=== PATIENT | female | born 1960 | race Caucasian/White ===

== ENCOUNTER 2018-10-16 21:57 | Emergency (ER) | payer OTHER, SELFPAY ==
[2018-10-16 21:58] VITALS: BP 141/84; PULSE 102; RESP 16; TEMP 36.8; O2SAT 97; BMI 48.1
--- NOTE | 2018-10-16 22:22 | ED.DCSUM_ITS ---
- ER Visit Summary Date of Service: 10/16/18 Chief Complaint: Sore throat and tongue History of Present Illness: The patient is a 58 F no significant past medical history. Currently on no medications. Patient states she has been fighting a URI for the last week or so. Said that is improving. Nonproductive cough. No fever. States last 2 days she has had a sore throat and sore tongue. Is able to swallow. Physical Examination: Well-appearing female. Vital signs are stable. She is afebrile. She does not look septic or toxic. She is in no acute distress. HEENT exam unremarkable. Posterior pharynx without erythema or exudate. Tonsils not enlarged. No troubles swallowing or breathing. No drooling. Tongue unremarkable. No swelling. No abscess ulcers. No yeast infection. TMs are normal. Neck nontender. No lymphadenopathy. Lungs clear to auscultation bilaterally. Heart regular rhythm no murmur. Dry cough on the lung exam. Abdomen soft nontender. Moving all 4 extremities. Back nontender. Neurologically she is awake and alert without focal motor deficits. Test Results: None Emergency Department Course and Treatment: Patient's history and exam are consistent with a viral URI. No tests are warranted. Treatment Plan: Warm salt water gargling and/or gargling with Gly-Oxide. Follow-up with her primary care physician as needed. Disposition: Discharge Impression: Acute viral URI This note was generated with [employer] dictation software. It may contain incorrect words, spelling, and punctuation that were not noted in review of the chart prior to signing ED Disposition - Plan for ED Patient: Chief Complaint: Sore Throat Referrals: NOT,DEFINED [Primary Care Provider] -
--- NOTE | 2018-10-16 22:22 | ED.DEP ---
ED Disposition - Plan for ED Patient: Disposition: Home or Assisted Living Chief Complaint: Sore Throat Instructions: ED Pharyngitis Viral Referrals: Yoandy Franco MD [NON-STAFF] - As Needed Additional Instructions: Warm salt water gargling. Gly-Oxide to help with discomfort of your mouth. 3-5 drops swish around your mouth for 2-5 minutes. 3-5 times per day.
== END 2018-10-16 22:53 | disposition home or self-care (01) ==
PROVIDERS: Emergency Provider Emergency Medicine
DX: J06.9 Acute upper respiratory infection, unspecified (principal)
CPT/HCPCS: 99282

== ENCOUNTER → 2021-05-12 15:24 | Outpatient (CLI) | payer OTHER, SELFPAY ==
[2021-05-12 16:03] LABS: Absolute Lymphocyte Count 1.47 X10^3/uL (0.83-4.51); Absolute Neutrophil Count 4.5 X10^3/uL (2.0-7.7); Basophil# 0.04 X10^3/uL; Basophil% 0.6 % (0-1); Eosinophil# 0.11 X10^3/uL; Eosinophils% 1.6 % (0-5); Hematocrit 43.6 % (37-47); Hemoglobin 14.5 g/dL (12.0-15.0); Lymphocyte # 1.47 X10^3/ul (0.83-4.51); Lymphocyte % 21.3 % (19-41); Mean Corp Hgb Conc 33.3 g/dL (32-36); Mean Corpuscular Hgb 30.7 pg (27.0-32.0); Mean Corpuscular Volume 92.2 fL (81-99); Mean Platelet Vol. 11.2 fl (6.2-12.0); Monocyte# 0.78 X10^3/uL; Monocyte% 11.3 % (0-10); NRBC Flagged by Analyzer 0 % (0-5); Neutrophil # 4.49 X10^3/uL (2.7-7.7); Neutrophil % 65.1 % (47-70); Platelet Count 285 K/mm3 (150-450); RBC Distribution Width CV 12.7 % (11.6-14.6); RBC Distribution Width SD 43.5 fl (35.1-43.9); Red Blood Count 4.73 M/mm3 (4.2-5.4); White Blood Count 6.9 K/mm3 (4.4-11.0)
[2021-05-12 16:30] LABS: AST(SGOT) 23 U/L (15-37); Alanine Aminotransfer ALT/SGPT 38 U/L (13-56); Albumin, Serum 3.8 g/dL (3.2-5.0); Alkaline Phosphatase 89 U/L (45-117); Anion Gap 9 (5-15); BUN 21 mg/dL (7-18); BUN/Creat Ratio 20.8 RATIO (10-20); Calcium,Total 8.9 mg/dL (8.5-10.1); Chloride 104 mmol/L (98-107); Creatinine, Serum 1.01 mg/dL (0.55-1.02); EST Glomerular Filtration Rate 59 mL/min (>60); Est Glom Filt Rate - Afr Amer 71 mL/min (>60); Globulin 3.8 g/dL (2.2-4.2); Glucose 120 mg/dL (74-106); Potassium 4.4 mmol/L (3.5-5.1); Protein, Total 7.6 g/dL (6.4-8.2); Sodium Level 140 mmol/L (136-145); Thyroid Stim Hormone (TSH) 2.52 uIU/mL (0.358-3.74)
[2021-05-13 11:09] LABS: Hepatitis C Antibody Non-Reactive (Nonreactive)
== END ==
PROVIDERS: PCP Family Medicine Geriatric Medicine; Visit Provider Family Medicine Geriatric Medicine
DX: I10 Essential (primary) hypertension (principal)
CPT/HCPCS: 36415; 80053; 84443; 85025; 86803

== ENCOUNTER → 2021-06-08 07:35 | Outpatient (CLI) | payer OTHER, SELFPAY ==
--- NOTE | 2021-06-08 07:38 | BI_ITS ---
MAMMOGRAPHY - BILATERAL SCREENING REASON FOR EXAM: Female, 61 years old. Routine annual screening examination. PERTINENT HISTORY: Non-contributory. TECHNIQUE: Digital bilateral breast wellington (3D mammographic acquisition) in the CC and MLO projections. 2-D mediolateral oblique (MLO) and craniocaudad (CC) views of both breasts were obtained. CAD: Full Field Digital Mammography with Computer Added Detection was performed. COMPARISON: Comparison is made with prior outside examination dated 07/22/2013. FINDINGS: Breast Composition: There are scattered areas of fibroglandular density. There are no dominant masses or suspicious calcifications. Stable small benign-appearing bilateral axillary lymph nodes. No other significant abnormalities are identified. There has been no significant change since the prior study. BI/SCRN MAMM (CAD)W/WELLINGTON BILAT IMPRESSION: Stable bilateral screening mammogram. Yearly follow-up mammogram recommended. (A) ASSESSMENT CATEGORY: BIRADS Category 2: Benign. A letter regarding these results will be sent to the patient by the facility within 30 days. Approximately 10% of breast cancers are not detected by mammography. A normal mammogram should not delay biopsy of a clinically suspicious abnormality. [id number] Electronically Signed: Alexander Orozco MD at 8:42 EDT , Service support ,
== END ==
PROVIDERS: PCP Family Medicine Geriatric Medicine; Referring Provider Family Medicine Geriatric Medicine; Visit Provider Family Medicine Geriatric Medicine
DX: Z12.31 Encounter for screening mammogram for malignant neoplasm of breast (principal)
CPT/HCPCS: 77063; 77067

== ENCOUNTER → 2021-11-10 10:50 | Outpatient (CLI) | payer OTHER, SELFPAY ==
[2021-11-10 12:44] LABS: Absolute Lymphocyte Count 1.94 X10^3/uL (0.83-4.51); Basophil# 0.03 X10^3/uL; Basophil% 0.4 % (0-1); Eosinophil# 0.18 X10^3/uL; Eosinophils% 2.5 % (0-5); Hematocrit 44.6 % (37-47); Hemoglobin 14.8 g/dL (12.0-15.0); Lymphocyte # 1.94 X10^3/ul (0.83-4.51); Lymphocyte % 27.4 % (19-41); Mean Corp Hgb Conc 33.2 g/dL (32-36); Mean Corpuscular Volume 93.3 fL (81-99); Mean Platelet Vol. 11.7 fl (6.2-12.0); Monocyte# 0.88 X10^3/uL; Monocyte% 12.4 % (0-10); NRBC Flagged by Analyzer 0 % (0-5); Neutrophil # 4.03 X10^3/uL (2.7-7.7); Neutrophil % 56.9 % (47-70); Platelet Count 295 K/mm3 (150-450); RBC Distribution Width CV 12.6 % (11.6-14.6); RBC Distribution Width SD 43.6 fl (35.1-43.9); Red Blood Count 4.78 M/mm3 (4.2-5.4); White Blood Count 7.1 K/mm3 (4.4-11.0)
[2021-11-10 13:09] LABS: ALB/GLOB Ratio 0.9 RATIO (0.9-2.4); AST(SGOT) 17 U/L (15-37); Alanine Aminotransfer ALT/SGPT 37 U/L (13-56); Albumin, Serum 3.7 g/dL (3.2-5.0); Alkaline Phosphatase 76 U/L (45-117); Anion Gap 6 (5-15); BUN 19 mg/dL (7-18); Calcium,Total 9.1 mg/dL (8.5-10.1); Chloride 103 mmol/L (98-107); EST Glomerular Filtration Rate 59 mL/min (>60); Est Glom Filt Rate - Afr Amer 72 mL/min (>60); Globulin 3.9 g/dL (2.2-4.2); Glucose 162 mg/dL (74-106); Potassium 4.1 mmol/L (3.5-5.1); Protein, Total 7.6 g/dL (6.4-8.2); Sodium Level 140 mmol/L (136-145); Thyroid Stim Hormone (TSH) 1.51 uIU/mL (0.358-3.74)
== END ==
PROVIDERS: PCP Family Medicine Geriatric Medicine; Visit Provider Family Medicine Geriatric Medicine
DX: R53.83 Other fatigue (principal)
CPT/HCPCS: 36415; 80053; 84443; 85025

== ENCOUNTER 2022-01-17 12:01 | Outpatient (CLI) | payer OTHER, SELFPAY ==
--- NOTE | 2022-01-17 12:08 | RAD_ITS ---
STUDY: X-RAY - LUMBAR SPINE REASON FOR EXAM: Female, 61 years old. Radiating low back pain TECHNIQUE: 3 view(s) of the lumbar spine were obtained. COMPARISON: None FINDINGS: There is straightening of the normal lumbar lordosis. There is no substantial scoliosis. There is a normal alignment of the vertebrae. There is multilevel endplate spondylosis of the lumbar vertebrae. There is multi-level degenerative disc disease with multi-level disc space narrowing. There is no demonstrated fracture. There is atherosclerotic calcification of the abdominal aorta without a demonstrated aneurysm. RAD/Lumbar Spine 2 or 3 Views IMPRESSION: Degenerative changes of the spine, as detailed above. Electronically Signed: Armando Dias MD at 15:30 EST ,
== END 2022-01-17 23:59 | disposition home or self-care (01) ==
LOC: RAD 12:05
PROVIDERS: PCP Family Medicine Geriatric Medicine; Referring Provider Family Medicine Geriatric Medicine; Visit Provider Family Medicine Geriatric Medicine
DX: M54.50 Low back pain, unspecified (principal)
CPT/HCPCS: 72100

== ENCOUNTER → 2022-05-18 | Outpatient (CLI) | payer OTHER, SELFPAY ==
[2022-05-18 12:01] LABS: Absolute Lymphocyte Count 1.85 X10^3/uL (0.83-4.51); Absolute Neutrophil Count 4.3 X10^3/uL (2.0-7.7); Basophil# 0.04 X10^3/uL; Basophil% 0.6 % (0-1); Eosinophil# 0.15 X10^3/uL; Eosinophils% 2.1 % (0-5); Hematocrit 45.9 % (37-47); Hemoglobin 14.8 g/dL (12.0-15.0); Lymphocyte # 1.85 X10^3/ul (0.83-4.51); Lymphocyte % 25.7 % (19-41); Mean Corp Hgb Conc 32.2 g/dL (32-36); Mean Corpuscular Hgb 31.1 pg (27.0-32.0); Mean Corpuscular Volume 96.4 fL (81-99); Mean Platelet Vol. 11.8 fl (6.2-12.0); Monocyte# 0.81 X10^3/uL; Monocyte% 11.3 % (0-10); NRBC Flagged by Analyzer 0 % (0-5); Neutrophil # 4.33 X10^3/uL (2.7-7.7); Platelet Count 309 K/mm3 (150-450); RBC Distribution Width CV 12.5 % (11.6-14.6); RBC Distribution Width SD 44.3 fl (35.1-43.9); Red Blood Count 4.76 M/mm3 (4.2-5.4); White Blood Count 7.2 K/mm3 (4.4-11.0)
[2022-05-18 12:27] LABS: AST(SGOT) 16 U/L (15-37); Alanine Aminotransfer ALT/SGPT 37 U/L (13-56); Albumin, Serum 3.8 g/dL (3.2-5.0); Alkaline Phosphatase 75 U/L (45-117); Anion Gap 6 (5-15); BUN 23 mg/dL (7-18); BUN/Creat Ratio 23.9 RATIO (10-20); Chloride 103 mmol/L (98-107); Creatinine, Serum 0.96 mg/dL (0.55-1.02); EST Glomerular Filtration Rate 62 mL/min (>60); Est Glom Filt Rate - Afr Amer 75 mL/min (>60); Globulin 3.7 g/dL (2.2-4.2); Glucose 163 mg/dL (74-106); Potassium 4.2 mmol/L (3.5-5.1); Protein, Total 7.5 g/dL (6.4-8.2); Sodium Level 136 mmol/L (136-145); Thyroid Stim Hormone (TSH) 1.86 uIU/mL (0.358-3.74)
== END | disposition home or self-care (01) ==
LOC: POLAB3 08:47
PROVIDERS: PCP Family Medicine Geriatric Medicine; Visit Provider Family Medicine Geriatric Medicine
DX: R53.83 Other fatigue (principal)
CPT/HCPCS: 36415; 80053; 84443; 85025

== ENCOUNTER → 2022-09-08 | Outpatient (CLI) | payer OTHER, SELFPAY | END | disposition home or self-care (01) | PROVIDERS: PCP Family Medicine Geriatric Medicine; Visit Provider Dentist Oral and Maxillofacial Surgery | DX: K06.8 Other specified disorders of gingiva and edentulous alveolar ridge (principal) | CPT/HCPCS: 88305; 88312 ==

== ENCOUNTER → 2022-09-12 | Outpatient (CLI) | payer OTHER, SELFPAY ==
[2022-09-12 13:11] LABS: Absolute Lymphocyte Count 1.36 X10^3/uL (0.83-4.51); Absolute Neutrophil Count 5.8 X10^3/uL (2.0-7.7); Basophil# 0.04 X10^3/uL; Basophil% 0.5 % (0-1); Eosinophil# 0.02 X10^3/uL; Eosinophils% 0.3 % (0-5); Hematocrit 45.7 % (37-47); Hemoglobin 15.5 g/dL (12.0-15.0); Lymphocyte # 1.36 X10^3/ul (0.83-4.51); Lymphocyte % 17.8 % (19-41); Mean Corp Hgb Conc 33.9 g/dL (32-36); Mean Corpuscular Hgb 31.5 pg (27.0-32.0); Mean Corpuscular Volume 92.9 fL (81-99); Mean Platelet Vol. 12.3 fl (6.2-12.0); Monocyte# 0.41 X10^3/uL; Monocyte% 5.4 % (0-10); NRBC Flagged by Analyzer 0 % (0-5); Neutrophil # 5.77 X10^3/uL (2.7-7.7); Neutrophil % 75.7 % (47-70); Platelet Count 268 K/mm3 (150-450); RBC Distribution Width CV 12.6 % (11.6-14.6); RBC Distribution Width SD 43.1 fl (35.1-43.9); Red Blood Count 4.92 M/mm3 (4.2-5.4); White Blood Count 7.6 K/mm3 (4.4-11.0)
[2022-09-12 13:33] LABS: Anion Gap 7 (5-15); BUN 15 mg/dL (7-18); BUN/Creat Ratio 16.4 RATIO (10-20); Calcium,Total 9.6 mg/dL (8.5-10.1); Chloride 105 mmol/L (98-107); Creatinine, Serum 0.92 mg/dL (0.55-1.02); EST Glomerular Filtration Rate 66 mL/min (>60); Est Glom Filt Rate - Afr Amer 79 mL/min (>60); Glucose 174 mg/dL (74-106); Potassium 4.3 mmol/L (3.5-5.1); Sodium Level 137 mmol/L (136-145)
== END | disposition home or self-care (01) ==
LOC: POLAB3 11:13
PROVIDERS: PCP Family Medicine Geriatric Medicine; Visit Provider Family Medicine Geriatric Medicine
DX: R42 Dizziness and giddiness (principal)
CPT/HCPCS: 36415; 80048; 85025

== ENCOUNTER → 2022-11-16 | Outpatient (CLI) | payer OTHER, SELFPAY ==
[2022-11-16 13:12] LABS: Absolute Lymphocyte Count 2.29 X10^3/uL (0.83-4.51); Absolute Neutrophil Count 3.1 X10^3/uL (2.0-7.7); Basophil# 0.05 X10^3/uL; Basophil% 0.8 % (0-1); Eosinophil# 0.19 X10^3/uL; Hematocrit 44.6 % (37-47); Hemoglobin 15.2 g/dL (12.0-15.0); Lymphocyte # 2.29 X10^3/ul (0.83-4.51); Lymphocyte % 36.4 % (19-41); Mean Corp Hgb Conc 34.1 g/dL (32-36); Mean Corpuscular Hgb 31.3 pg (27.0-32.0); Mean Corpuscular Volume 91.8 fL (81-99); Monocyte# 0.67 X10^3/uL; Monocyte% 10.7 % (0-10); NRBC Flagged by Analyzer 0 % (0-5); Neutrophil # 3.06 X10^3/uL (2.7-7.7); Neutrophil % 48.6 % (47-70); Platelet Count 289 K/mm3 (150-450); RBC Distribution Width CV 12.8 % (11.6-14.6); RBC Distribution Width SD 42.9 fl (35.1-43.9); Red Blood Count 4.86 M/mm3 (4.2-5.4); White Blood Count 6.3 K/mm3 (4.4-11.0)
[2022-11-16 13:29] LABS: Vitamin D,25 Hydroxy 68.6 ng/mL
[2022-11-16 13:39] LABS: ALB/GLOB Ratio 1.2 RATIO (0.9-2.4); AST(SGOT) 15 U/L (15-37); Alanine Aminotransfer ALT/SGPT 33 U/L (13-56); Albumin, Serum 3.9 g/dL (3.2-5.0); Alkaline Phosphatase 78 U/L (45-117); Anion Gap 8 (5-15); BUN 16 mg/dL (7-18); BUN/Creat Ratio 17.3 RATIO (10-20); Calcium,Total 9.3 mg/dL (8.5-10.1); Chloride 100 mmol/L (98-107); Creatinine, Serum 0.92 mg/dL (0.55-1.02); EST Glomerular Filtration Rate 65 mL/min (>60); Est Glom Filt Rate - Afr Amer 79 mL/min (>60); Globulin 3.3 g/dL (2.2-4.2); Glucose 112 mg/dL (74-106); Potassium 4.2 mmol/L (3.5-5.1); Protein, Total 7.2 g/dL (6.4-8.2); Sodium Level 137 mmol/L (136-145); Thyroid Stim Hormone (TSH) 2.71 uIU/mL (0.358-3.74)
== END | disposition home or self-care (01) ==
LOC: POLAB3 09:11
PROVIDERS: PCP Family Medicine Geriatric Medicine; Visit Provider Family Medicine Geriatric Medicine
DX: E55.9 Vitamin D deficiency, unspecified (principal); E11.65 Type 2 diabetes mellitus with hyperglycemia; R53.83 Other fatigue
CPT/HCPCS: 36415; 80053; 82306; 84443; 85025

== ENCOUNTER → 2023-06-01 | Outpatient (CLI) | payer MEDICARE, SELFPAY ==
[2023-06-01 11:25] LABS: Absolute Lymphocyte Count 1.62 X10^3/uL (0.83-4.51); Absolute Neutrophil Count 3.1 X10^3/uL (2.0-7.7); Basophil# 0.04 X10^3/uL; Basophil% 0.7 % (0-1); Eosinophils% 1.9 % (0-5); Hematocrit 44.5 % (37-47); Hemoglobin 14.9 g/dL (12.0-15.0); Lymphocyte # 1.62 X10^3/ul (0.83-4.51); Mean Corp Hgb Conc 33.5 g/dL (32-36); Mean Corpuscular Hgb 31.2 pg (27.0-32.0); Mean Corpuscular Volume 93.3 fL (81-99); Mean Platelet Vol. 11.4 fl (6.2-12.0); Monocyte# 0.52 X10^3/uL; Monocyte% 9.6 % (0-10); NRBC Flagged by Analyzer 0 % (0-5); Neutrophil # 3.11 X10^3/uL (2.7-7.7); Neutrophil % 57.6 % (47-70); Platelet Count 300 K/mm3 (150-450); RBC Distribution Width CV 12.7 % (11.6-14.6); RBC Distribution Width SD 43.9 fl (35.1-43.9); Red Blood Count 4.77 M/mm3 (4.2-5.4); White Blood Count 5.4 K/mm3 (4.4-11.0)
[2023-06-01 11:40] LABS: Vitamin D,25 Hydroxy 84.8 ng/mL
[2023-06-01 11:45] LABS: AST(SGOT) 15 U/L (15-37); Alanine Aminotransfer ALT/SGPT 23 U/L (13-56); Albumin, Serum 3.7 g/dL (3.2-5.0); Alkaline Phosphatase 72 U/L (45-117); Anion Gap 7 (5-15); BUN 15 mg/dL (7-18); BUN/Creat Ratio 14.4 RATIO (10-20); Calcium,Total 9.3 mg/dL (8.5-10.1); Chloride 104 mmol/L (98-107); Creatinine, Serum 1.04 mg/dL (0.55-1.02); EST Glomerular Filtration Rate 57 mL/min (>60); Est Glom Filt Rate - Afr Amer 68 mL/min (>60); Globulin 3.8 g/dL (2.2-4.2); Glucose 119 mg/dL (74-106); Potassium 4.2 mmol/L (3.5-5.1); Protein, Total 7.5 g/dL (6.4-8.2); Sodium Level 139 mmol/L (136-145); Thyroid Stim Hormone (TSH) 2.27 uIU/mL (0.358-3.74)
== END | disposition home or self-care (01) ==
LOC: POLAB3 08:53
PROVIDERS: PCP Family Medicine Geriatric Medicine; Visit Provider Family Medicine Geriatric Medicine
DX: E11.65 Type 2 diabetes mellitus with hyperglycemia (principal); R53.83 Other fatigue; E55.9 Vitamin D deficiency, unspecified
CPT/HCPCS: 36415; 80053; 82306; 84443; 85025

== ENCOUNTER → 2023-12-03 | Outpatient (CLI) | payer MEDICARE, SELFPAY ==
[2023-12-03 10:49] LABS: Absolute Lymphocyte Count 2.06 X10^3/uL (0.83-4.51); Absolute Neutrophil Count 3.7 X10^3/uL (2.0-7.7); Basophil# 0.05 X10^3/uL; Basophil% 0.8 % (0-1); Eosinophil# 0.11 X10^3/uL; Eosinophils% 1.7 % (0-5); Hematocrit 45.4 % (37-47); Hemoglobin 14.6 g/dL (12.0-15.0); Lymphocyte # 2.06 X10^3/ul (0.83-4.51); Lymphocyte % 31.2 % (19-41); Mean Corp Hgb Conc 32.2 g/dL (32-36); Mean Corpuscular Hgb 30.1 pg (27.0-32.0); Mean Corpuscular Volume 93.6 fL (81-99); Mean Platelet Vol. 11.3 fl (6.2-12.0); Monocyte# 0.66 X10^3/uL; NRBC Flagged by Analyzer 0 % (0-5); Neutrophil # 3.71 X10^3/uL (2.7-7.7); Platelet Count 281 K/mm3 (150-450); RBC Distribution Width CV 12.6 % (11.6-14.6); RBC Distribution Width SD 43.2 fl (35.1-43.9); Red Blood Count 4.85 M/mm3 (4.2-5.4); White Blood Count 6.6 K/mm3 (4.4-11.0)
[2023-12-03 10:55] LABS: Vitamin D,25 Hydroxy 81.3 ng/mL
[2023-12-03 11:08] LABS: ALB/GLOB Ratio 1.1 RATIO (0.9-2.4); AST(SGOT) 17 U/L (15-37); Alanine Aminotransfer ALT/SGPT 26 U/L (13-56); Alkaline Phosphatase 78 U/L (45-117); Anion Gap 6 (5-15); BUN 16 mg/dL (7-18); BUN/Creat Ratio 15.4 RATIO (10-20); Calcium,Total 9.1 mg/dL (8.5-10.1); Chloride 103 mmol/L (98-107); Creatinine, Serum 1.04 mg/dL (0.55-1.02); EST Glomerular Filtration Rate 56 mL/min (>60); Est Glom Filt Rate - Afr Amer 68 mL/min (>60); Globulin 3.8 g/dL (2.2-4.2); Glucose 117 mg/dL (74-106); Potassium 4.2 mmol/L (3.5-5.1); Protein, Total 7.8 g/dL (6.4-8.2); Sodium Level 137 mmol/L (136-145); Thyroid Stim Hormone (TSH) 1.92 uIU/mL (0.358-3.74)
== END | disposition home or self-care (01) ==
LOC: POLAB3 09:34
PROVIDERS: PCP Family Medicine Geriatric Medicine; Visit Provider Family Medicine Geriatric Medicine
DX: E11.65 Type 2 diabetes mellitus with hyperglycemia (principal); E55.9 Vitamin D deficiency, unspecified; R53.83 Other fatigue
CPT/HCPCS: 36415; 80053; 82306; 84443; 85025

== ENCOUNTER → 2024-06-26 | Outpatient (CLI) | payer MEDICARE, SELFPAY ==
--- NOTE | 2024-06-26 13:54 | BI_ITS ---
MAMMOGRAPHY - BILATERAL SCREENING REASON FOR EXAM: Female, 64 years old. Routine annual screening examination. PERTINENT HISTORY: Non-contributory. TECHNIQUE: Digital bilateral breast wellington (3D mammographic acquisition) in the CC and MLO projections. 2-D mediolateral oblique (MLO) and craniocaudad (CC) views of both breasts were obtained. CAD: Full Field Digital Mammography with Computer Added Detection was performed. COMPARISON: Comparison is made with prior study dated June 08, 2021. FINDINGS: Breast Composition: There are scattered areas of fibroglandular density. There are no dominant masses or suspicious calcifications. Stable bilateral fat containing axillary lymph nodes. No other significant abnormalities are identified. There has been no significant change since the prior study. BI/SCRN MAMM (CAD)W/WELLINGTON BILAT IMPRESSION: Stable bilateral screening mammogram. Yearly follow-up mammogram recommended. (A) ASSESSMENT CATEGORY: BIRADS Category 2: Benign. A letter regarding these results will be sent to the patient by the facility within 30 days. Approximately 10% of breast cancers are not detected by mammography. A normal mammogram should not delay biopsy of a clinically suspicious abnormality. [id number] Electronically Signed: Alexander Orozco MD at 15:01 EDT ,
--- NOTE | 2024-06-26 14:02 | BD_ITS ---
STUDY: DUAL ENERGY X-RAY ABSORPTIOMETRY / DXA REASON FOR EXAM: Female, 64 years old. [id number] TECHNIQUE: Bone Mineral Density (BMD) measurements of lumbar spine and bilateral hips were obtained. COMPARISON: None. FINDINGS: Lumbar Spine (L1-L4): g/cm2 (0.946) / T-score (-0.3) / Z-score (1.4) Findings are suggestive of normal bone density with a low fracture risk. Left Femur Total: g/cm2 (0.976) / T-score (0.3) / Z-score (1.6) Left Femoral Neck: g/cm2 (0.832) / T-score (-0.2) / Z-score (1.4) Right Femur Total: g/cm2 (0.978) / T-score (0.3) / Z-score (1.6) Right Femoral Neck: g/cm2 (0.744) / T-score (-0.9) / Z-score (0.6) BD/Dexa Bone Density Study IMPRESSION: The patient is considered normal as outlined below according to World Andrew Organization (WHO) criteria with a low fracture risk. Reference Information: The T-score is the number of standard deviations above or below the standard which is normal for young adults at their peak bone mineral density. The World Health Organization (WHO) interprets the T-scores as follows: Above -1 Normal bone density Between -1 and -2.5 Osteopenia Equal to / or below -2.5 Osteoporosis As a practical clinical guideline, osteopenia may be graded as follows: Mild -1 through -1.5 Moderate -1.6 through -2.0 Severe -2.1 through -2.4 The Z-score is the number of standard deviations above or below age-matched controls. A Z-score of less than -1.5 would be considered abnormal. References: 1. NIH Osteoporosis and Related Bone Diseases www osteo.org 2. International Society for Clinical Densitometry www iscd.org 3. National Osteoporosis Foundation www nof.org Electronically Signed: Alexander Orozco MD at 15:17 EDT ,
== END | disposition home or self-care (01) ==
LOC: OPBD 13:53
PROVIDERS: PCP Family Medicine Geriatric Medicine; Referring Provider Family Medicine Geriatric Medicine; Visit Provider Family Medicine Geriatric Medicine
DX: Z12.31 Encounter for screening mammogram for malignant neoplasm of breast (principal); Z78.0 Asymptomatic menopausal state
CPT/HCPCS: 77063; 77067; 77080

== ENCOUNTER → 2024-12-05 | Outpatient (CLI) | payer MEDICARE, SELFPAY ==
[2024-12-05 10:36] LABS: Absolute Neutrophil Count 3.8 X10^3/uL (2.0-7.7); Basophil# 0.05 X10^3/uL; Basophil% 0.8 % (0-1); Eosinophil# 0.12 X10^3/uL; Eosinophils% 1.8 % (0-5); Hematocrit 44.6 % (37-47); Lymphocyte % 29.1 % (19-41); Mean Corp Hgb Conc 33.6 g/dL (32-36); Mean Corpuscular Hgb 31.1 pg (27.0-32.0); Mean Corpuscular Volume 92.5 fL (81-99); Mean Platelet Vol. 11.8 fl (6.2-12.0); Monocyte# 0.69 X10^3/uL; Monocyte% 10.6 % (0-10); NRBC Flagged by Analyzer 0 % (0-5); Neutrophil # 3.76 X10^3/uL (2.7-7.7); Neutrophil % 57.5 % (47-70); Platelet Count 274 K/mm3 (150-450); RBC Distribution Width CV 12.8 % (11.6-14.6); RBC Distribution Width SD 43.4 fl (35.1-43.9); Red Blood Count 4.82 M/mm3 (4.2-5.4); White Blood Count 6.5 K/mm3 (4.4-11.0)
[2024-12-05 11:05] LABS: ALB/GLOB Ratio 1.1 RATIO (0.9-2.4); AST(SGOT) 14 U/L (15-37); Alanine Aminotransfer ALT/SGPT 26 U/L (13-56); Albumin, Serum 3.8 g/dL (3.2-5.0); Alkaline Phosphatase 74 U/L (45-117); Anion Gap 5 (5-15); BUN 17 mg/dL (7-18); BUN/Creat Ratio 17.6 RATIO (10-20); Chloride 105 mmol/L (98-107); Cholesterol 124 mg/dL (200); Creatinine, Serum 0.97 mg/dL (0.55-1.02); EST Glomerular Filtration Rate 61 mL/min (>60); Est Glom Filt Rate - Afr Amer 74 mL/min (>60); Globulin 3.5 g/dL (2.2-4.2); Glucose 132 mg/dL (74-106); High Density Lipoprotein 48 mg/dL; Potassium 4.3 mmol/L (3.5-5.1); Protein, Total 7.3 g/dL (6.4-8.2); Sodium Level 138 mmol/L (136-145); Triglycerides 92 mg/dL; Very Low Density Lipoprotein 18 mg/dL (5-40)
[2024-12-05 11:18] LABS: Hemoglobin A1c 6.8 % (3.8-5.6)
== END | disposition home or self-care (01) ==
LOC: LAB 09:18
PROVIDERS: PCP Family Medicine Geriatric Medicine; Referring Provider Family Medicine Geriatric Medicine; Visit Provider Family Medicine Geriatric Medicine
DX: E11.65 Type 2 diabetes mellitus with hyperglycemia (principal); R53.83 Other fatigue; E55.9 Vitamin D deficiency, unspecified
CPT/HCPCS: 36415; 80053; 80061; 82306; 83036; 84443; 85025

== ENCOUNTER → 2025-06-05 | Outpatient (CLI) | payer MEDICARE, SELFPAY ==
[2025-06-05 09:25] LABS: Hematocrit 44.4 % (37-47); Hemoglobin 15.1 g/dL (12.0-15.0); Immature Granulocytes Count 0.020 X10^3/uL (0.0-0.0); Mean Corp Hgb Conc 34.0 g/dL (32-36); Mean Corpuscular Volume 91.4 fL (81-99); Mean Platelet Vol. 11.2 fl (6.2-12.0); NRBC Flagged by Analyzer 0 % (0-5); Platelet Count 284 K/mm3 (150-450); RBC Distribution Width CV 12.6 % (11.6-14.6); RBC Distribution Width SD 41.3 fl (35.1-43.9); Red Blood Count 4.86 M/mm3 (4.2-5.4); White Blood Count 5.9 K/mm3 (4.4-11.0)
[2025-06-05 10:15] LABS: AST(SGOT) 20 U/L (<=31); Alanine Aminotransfer ALT/SGPT 23 U/L (<=34); Albumin, Serum 4.1 g/dL (3.4-4.8); Alkaline Phosphatase 77 U/L (35-104); Anion Gap 11 (5-15); BUN 15 mg/dL (4-19); BUN/Creat Ratio 15.2 RATIO (10-20); Calcium,Total 9.4 mg/dL (7.6-11.0); Carbon Dioxide 24.5 mmol/L (21.0-32.0); Chloride 102 mmol/L (98-108); Cholesterol 135 mg/dL (<=200); Globulin 3.0 g/dL (2.2-4.2); Glucose 135 mg/dL (70-99); Low Density Lipoprotein Calc. 64 mg/dL; Potassium 4.4 mmol/L (3.3-5.1); Triglycerides 152 mg/dL; Very Low Density Lipoprotein 30 mg/dL (5-40); Vitamin D,25 Hydroxy 51.9 ng/mL (30-100); cholesterol:hdl ratio screen 3.33
[2025-06-05 10:18] LABS: Creatinine, Urine (random) 166.00 mg/dL (28.00-217.00); Microalbumin,Random Urine < 12.0 mg/L (NO RANGE EST.)
== END | disposition home or self-care (01) ==
LOC: POLAB3 09:03
PROVIDERS: PCP Family Medicine Geriatric Medicine; Visit Provider Family Medicine Geriatric Medicine
DX: E78.5 Hyperlipidemia, unspecified (principal); E11.65 Type 2 diabetes mellitus with hyperglycemia; R53.83 Other fatigue; E55.9 Vitamin D deficiency, unspecified
CPT/HCPCS: 36415; 80053; 80061; 82043; 82306; 82570; 83036; 84443; 85025

== ENCOUNTER → 2025-09-11 | Outpatient (CLI) | payer MEDICARE, SELFPAY ==
--- OUTSIDE RECORDS SUMMARY | 2025-09-11 09:56 | XMS RPT_ITS | CCD ---
Author Organization [facility] Care Team Providers Care Amusement Or Recreation Card Checker Name Role Phone Jordyn De Los Santos Primary Care Provider [phone] Rodolfo BELTRÁN, Dr. Harmeet Beaulieu Primary Care Provider [phone] Rodolfo BELTRÁN, Dr. Harmeet Beaulieu Attending Provider Rodolfo, Harmeet Chi Primary Care Unavailable Rodolfo, Harmeet Chi Referring Unavailable Rodolfo, Harmeet Chi Attending Unavailable Rodolfo, Harmeet Chi Primary Care Unavailable Rodolfo, Harmeet Chi Attending Unavailable Rodolfo, Harmeet Chi Primary Care Unavailable Rodolfo, Harmeet Chi Referring Unavailable Rodolfo, Harmeet Chi Attending Unavailable Medications Completed/Discontinued Medications Medication Drug Class(es) Dates Sig (Normalized) Sig (Original) benzonatate 100 mg oral capsule (1 source) Non-narcotic Antitussive Start: 10-27-2013 End: 10-26-2014 take 1-2 capsules by mouth twice daily as needed for cough benzonatate (TESSALON PERLES) 100 mg capsule Indications: Acute URI , Cough Take 1-2 capsules by mouth twice daily as needed for Cough. 24 capsule 0 10/27/2013 10/26/2014 Discontinued (Course of therapy completed) Comment on above: Take 1-2 capsules by mouth twice daily as needed for Cough. COMPOUNDED PRESCRIPTION (1 source) Start: 07-22-2013 COMPOUNDED PRESCRIPTION Vitamin D 4151-3728 units daily. 0 07/22/2013 Active Comment on above: Vitamin D 8257-1875 units daily. dextromethorphan hydrobromide 3 mg/ml / promethazine hydrochloride 1.25 mg/ml oral solution (1 source) Phenothiazine, Uncompetitive R-phgqey-[place]-as[place]at e Receptor Antagonist, Sigma-1 Agonist Start: 10-27-2013 End: 10-26-2014 take 5 mL by mouth four times daily as needed for cough Promethazine-DM 6.25-15 mg/5 mL syrup Indications: Acute URI , Cough Take 5 mL by mouth four times daily as needed (postnasal drip and cough). 180 mL 0 10/27/2013 10/26/2014 Discontinued (Course of therapy completed) Comment on above: Take 5 mL by mouth f our times daily as needed (postnasal drip and cough). Problems Active Problems Problem Classification Problem Date Documented Da te Episodic/Chronic Diabetes mellitus with complications (1 source) Type 2 diabetes mellitus with hyperglycemia; Translations: [Type 2 diabetes mellitus with hyperglycemia] Onset: 12-30-2024 Chronic Disorders of lipid metabolism (1 source) Hyperlipidemia, unspecified; Translations: [Hyperlipidemia, unspecified] Onset: 06-11-2025 Chronic Other nutritional; endocrine; and metabolic disorders (1 source) Obesity; Translations: [Obesity, unspecified] Onset: 03-30-2009 03-30-2009 Chronic Past or Other Problems Problem Classification Problem Date Documented Da te Episodic/Chronic Abdominal pain (1 source) Right lower quadrant pain; Translations: [Right lower quadrant pain] Onset: 03-30-2009 03-30-2009 Episodic Other gastrointestinal disorders (1 source) Other specified symptoms and signs involving the digestive system and abdomen; Translations: [Other symptoms involving digestive system] Onset: 03-30-2009 03-30-2009 Episodic Other screening for suspected conditions (not mental disorders or infectious disease) (1 source) Encounter for screening mammogram for malignant neoplasm of breast; Translations: [Encounter for screening mammogram for malignant neoplasm of breast] Onset: 07-31-2024 Episodic Results Test Name Value Interpretation Reference Range Facility Absolute lymphocyte countOrd ered By: Harmeet Reynolds on 06-05-2025 Lymphocytes Auto (Unsp spec) [#/Vol] 2.31 10*3/uL 0.83-4.51 [facility] Absolute neutrophil countOrd ered By: Harmeet Reynolds on 06-05-2025 Neutrophils (Bld) [#/Vol] 2.9 10*3/uL 2.0-7.7 [facility] Anion gap in Serum or Plasma Ordered By: Harmeet Reynolds on 06-05-2025 Anion gap [Moles/Vol] 11 mmol/L 5-15 [facility] Automated lymphocyte count a s percentage of total leukocytesOrdered By: Harmeet Reynolds on 06-05-2025 Lymphocytes/100 WBC Auto (Unsp spec) 38.9 % - [facility] BUN/creatinine ratioOrdered By: Harmeet Reynolds on 06-05-2025 Urea nitrogen/Creatinine [Mass ratio] 15.2 mg/mg 10- [facility] Basophil percentageOrdered B y: Harmeet Reynolds on 06-05-2025 Basophils/100 WBC (Bld) 1.0 % 0-1 [facility] Bilirubin, totalOrdered By: Harmeet Reynolds on 06-05-2025 Bilirubin [Mass/Vol] 0.40 mg/dL 0.00-1.30 [facility] CBC W/Diff, Automatedon 05-26 Absolute Lymph 2.31 X10 3/uL Normal 0.83-4.51 [facility] Comment on above: Performed By: #### L 506.1001, L501.9985, L500.4050, L100.0100, L502.0250, L501.9520, L500.4100 #### [facility] [address] [place], [address] Absolute Neut 2.9 X10 3/uL Normal 2.0-7.7 [facility] Comment on above: Performed By: #### L 506.1001, L501.9985, L500.4050, L100.0100, L502.0250, L501.9520, L500.4100 #### [facility] [address] [place], [address] Basophils/100 WBC (Bld) 1.0 % Normal 0-1 [facility] Comment on above: Performed By: #### L 506.1001, L501.9985, L500.4050, L100.0100, L502.0250, L501.9520, L500.4100 #### [facility] [address] [place], [address] Eosinophils/100 WBC (Bld) 1.9 % Normal 0-5 [facility] Comment on above: Performed By: #### L 506.1001, L501.9985, L500.4050, L100.0100, L502.0250, L501.9520, L500.4100 #### [facility] [address] [place], [address] Erythrocyte distribution width (RBC) [Ratio] 12.6 % Normal 11.6-14.6 [facility] Comment on above: Performed By: #### L 506.1001, L501.9985, L500.4050, L100.0100, L502.0250, L501.9520, L500.4100 #### [facility] [address] [place], [address] Hematocrit (Bld) [Volume fraction] 44.4 % Normal 37-47 [facility] Comment on above: Performed By: #### L 506.1001, L501.9985, L500.4050, L100.0100, L502.0250, L501.9520, L500.4100 #### [facility] [address] [place], [address] Hemoglobin (Bld) [Mass/Vol] 15.1 g/dL High 12.0-15.0 [facility] Comment on above: Performed By: #### L 506.1001, L501.9985, L500.4050, L100.0100, L502.0250, L501.9520, L500.4100 #### [facility] [address] [place], [address] IG% 0.300 Normal 0.0-0.9 [facility] Comment on above: Result Comment: IG% - Immature Granulocytes (promyelocytes, myelocytes and metamyelocytes) > 1% indicates that a LEFT SHIFT is Present. Performed By: #### L 506.1001, L501.9985, L500.4050, L100.0100, L502.0250, L501.9520, L500.4100 #### [facility] [address] [place], [address] Lymphocytes/100 WBC (Bld) 38.9 % Normal 19-41 [facility] Comment on above: Performed By: #### L 506.1001, L501.9985, L500.4050, L100.0100, L502.0250, L501.9520, L500.4100 #### [facility] [address] [place], [address] MCH (RBC) [Entitic mass] 31.1 pg Normal 27.0-32.0 [facility] Comment on above: Performed By: #### L 506.1001, L501.9985, L500.4050, L100.0100, L502.0250, L501.9520, L500.4100 #### [facility] [address] [place], [address] MCHC (RBC) [Mass/Vol] 34.0 g/dL Normal 32-36 [facility] Comment on above: Performed By: #### L 506.1001, L501.9985, L500.4050, L100.0100, L502.0250, L501.9520, L500.4100 #### [facility] [address] [place], [address] MCV (RBC) [Entitic vol] 91.4 fL Normal 81-99 [facility] Comment on above: Performed By: #### L 506.1001, L501.9985, L500.4050, L100.0100, L502.0250, L501.9520, L500.4100 #### [facility] [address] [place], [address] Monocytes/100 WBC (Bld) 9.8 % Normal 0-10 [facility] Comment on above: Performed By: #### L 506.1001, L501.9985, L500.4050, L100.0100, L502.0250, L501.9520, L500.4100 #### [facility] [address] [place], [address] Neutrophils/100 WBC (Bld) 48.1 % Normal 47-70 [facility] Comment on above: Performed By: #### L 506.1001, L501.9985, L500.4050, L100.0100, L502.0250, L501.9520, L500.4100 #### [facility] [address] [place], [address] Nucleated RBC (Bld) [#/Vol] 0 10*3/uL Normal 0-5 [facility] Comment on above: Performed By: #### L 506.1001, L501.9985, L500.4050, L100.0100, L502.0250, L501.9520, L500.4100 #### [facility] [address] [place], [address] Platelet mean volume (Bld) [Entitic vol] 11.2 fL Normal 6.2-12.0 [facility] Comment on above: Performed By: #### L 506.1001, L501.9985, L500.4050, L100.0100, L502.0250, L501.9520, L500.4100 #### [facility] [address] [place], [address] Platelets (Bld) [#/Vol] 284 10*3/uL Normal 150-450 [facility] Comment on above: Performed By: #### L 506.1001, L501.9985, L500.4050, L100.0100, L502.0250, L501.9520, L500.4100 #### [facility] [address] [place], [address] RBC (Bld) [#/Vol] 4.86 10*6/uL Normal 4.2-5.4 [facility] Comment on above: Performed By: #### L 506.1001, L501.9985, L500.4050, L100.0100, L502.0250, L501.9520, L500.4100 #### [facility] [address] [place], [place], [id number] RDW SD 41.3 fl Normal 35.1-43.9 [facility] Comment on above: Performed By: #### L 506.1001, L501.9985, L500.4050, L100.0100, L502.0250, L501.9520, L500.4100 #### [facility] [address] [place], [place], [id number] WBC (Bld) [#/Vol] 5.9 10*3/uL Normal 4.4-11.0 [facility] Comment on above: Performed By: #### L 506.1001, L501.9985, L500.4050, L100.0100, L502.0250, L501.9520, L500.4100 #### [facility] [address] [place], [place], [id number] Calculated very low density lipoprotein (VLDL) cholesterol measurementOrdered By: Harmeet Reynolds on 06-05-2025 Calculated very low density lipoprotein (VLDL) cholesterol measurement 30 mg/dL 5-40 [facility] Carbon dioxide, total [Moles /volume] in Central venous bloodOrdered By: Harmeet Reynolds on 06-05-2025 CO2 [Moles/Vol] 24.5 mmol/L 21.0-32.0 [facility] Chloride assayOrdered By: Yoav Reynolds on 06-05-2025 Chloride [Moles/Vol] 102 mmol/L 98-108 [facility] Comprehensive Metabolic Prof ilon 06-05-2025 Albumin [Mass/Vol] 4.1 g/dL Normal 3.4-4.8 [facility] Comment on above: Performed By: #### L 500.4100, L501.9520, L506.1000, L100.0100, L500.4050, L501.9985 #### [facility] [address] [place], [address] Albumin/Globulin [Mass ratio] 1.4 {ratio} Normal 0.9-2.4 [facility] Comment on above: Performed By: #### L 500.4100, L501.9520, L506.1000, L100.0100, L500.4050, L501.9985 #### [facility] [address] [place], [address] ALK PHOS 77 U/L Normal 35-104 [facility] Comment on above: Performed By: #### L 500.4100, L501.9520, L506.1000, L100.0100, L500.4050, L501.9985 #### [facility] [address] [place], [address] ALT [Catalytic activity/Vol] 23 U/L Normal <=34 [facility] Comment on above: Performed By: #### L 500.4100, L501.9520, L506.1000, L100.0100, L500.4050, L501.9985 #### [facility] [address] [place], [address] AST [Catalytic activity/Vol] 20 U/L Normal <=31 [facility] Comment on above: Performed By: #### L 500.4100, L501.9520, L506.1000, L100.0100, L500.4050, L501.9985 #### [facility] [address] [place], [address] Bilirubin [Mass/Vol] 0.40 mg/dL Normal 0.00-1.30 [facility] Comment on above: Performed By: #### L 500.4100, L501.9520, L506.1000, L100.0100, L500.4050, L501.9985 #### [facility] [address] [place], [address] BUN/CRE 15.2 RATIO Normal 10-20 [facility] Comment on above: Performed By: #### L 500.4100, L501.9520, L506.1000, L100.0100, L500.4050, L501.9985 #### [facility] [address] [place], [address] Calcium [Mass/Vol] 9.4 mg/dL Normal 7.6-11.0 [facility] Comment on above: Performed By: #### L 500.4100, L501.9520, L506.1000, L100.0100, L500.4050, L501.9985 #### [facility] [address] [place], [address] Chloride [Moles/Vol] 102 mmol/L Normal 98-108 [facility] Comment on above: Performed By: #### L 500.4100, L501.9520, L506.1000, L100.0100, L500.4050, L501.9985 #### [facility] [address] [place], [address] CO2 [Moles/Vol] 24.5 mmol/L Normal 21.0-32.0 [facility] Comment on above: Performed By: #### L 500.4100, L501.9520, L506.1000, L100.0100, L500.4050, L501.9985 #### [facility] [address] [place], [address] Creatinine [Mass/Vol] 0.99 mg/dL Normal 0.70-1.20 [facility] Comment on above: Performed By: #### L 500.4100, L501.9520, L506.1000, L100.0100, L500.4050, L501.9985 #### [facility] [address] [place], [address] GAP 11 Normal 5-15 [facility] Comment on above: Performed By: #### L 500.4100, L501.9520, L506.1000, L100.0100, L500.4050, L501.9985 #### [facility] [address] [place], [address] GFR/1.73 sq M.predicted among non-blacks MDRD (S/P/Bld) [Vol rate/Area] 62 mL/min/{1.73_m2} Normal >60 [facility] Comment on above: Result Comment: mL/m in/1.73m2 CKD-EPI Creatinine Equation (2020) Performed By: #### L 500.4100, L501.9520, L506.1000, L100.0100, L500.4050, L501.9985 #### [facility] [address] [place], [address] Globulin (S) [Mass/Vol] 3.0 g/dL Normal 2.2-4.2 [facility] Comment on above: Performed By: #### L 500.4100, L501.9520, L506.1000, L100.0100, L500.4050, L501.9985 #### [facility] [address] [place], [address] Glucose [Mass/Vol] 135 mg/dL High 70-99 [facility] Comment on above: Performed By: #### L 500.4100, L501.9520, L506.1000, L100.0100, L500.4050, L501.9985 #### [facility] [address] [place], [address] Potassium [Moles/Vol] 4.4 mmol/L Normal 3.3-5.1 [facility] Comment on above: Performed By: #### L 500.4100, L501.9520, L506.1000, L100.0100, L500.4050, L501.9985 #### [facility] [address] [place], [address] Sodium [Moles/Vol] 138 mmol/L Normal 133-145 [facility] Comment on above: Performed By: #### L 500.4100, L501.9520, L506.1000, L100.0100, L500.4050, L501.9985 #### [facility] [address] [place], [address] T PROT 7.1 g/dL Normal 5.9-8.4 [facility] Comment on above: Performed By: #### L 500.4100, L501.9520, L506.1000, L100.0100, L500.4050, L501.9985 #### [facility] [address] [place], [address] Urea nitrogen [Mass/Vol] 15 mg/dL Normal 4-19 [facility] Comment on above: Performed By: #### L 500.4100, L501.9520, L506.1000, L100.0100, L500.4050, L501.9985 #### [facility] [address] [place], [address] Eosinophil percentageOrdered By: Harmeet Reynolds on 06-05-2025 Eosinophils/100 WBC (Bld) 1.9 % 0-5 [facility] Erythrocyte distribution wid th ratioOrdered By: [facility] on 06-05-2025 Erythrocyte distribution width (RBC) [Ratio] 12.6 % 11.6-14.6 [facility] Erythrocyte distribution wid th standard deviationOrdered By: Harmeet Reynolds on 06-05-2025 Erythrocyte distribution width (RBC) [Ratio] 41.3 fl 35.1-43.9 [facility] Glomerular filtration rate ( GFR) estimation/1.73 sq m using serum, plasma, or whole bOrdered By: Harmeet Reynolds on 06-05-2025 GFR/1.73 sq M.predicted among non-blacks MDRD (S/P/Bld) [Vol rate/Area] 62 mL/min/{1.73_m2} >60 [facility] Comment on above: mL/min/1.73m2 CKD-EP I Creatinine Equation (2020) Hematocrit Auto (Bld) [Volum e fraction]Ordered By: Harmeet Reynolds on 06-05-2025 Hematocrit (Bld) [Volume fraction] 44.4 % 37-47 [facility] Hemoglobin A1con 06-05-2025 HbA1c (Bld) [Mass fraction] 8.0 % High <=5.6 [facility] Comment on above: Result Comment: Norm al < 5.7 % Prediabetic 5.7 - 6.4 % Diabetic >or= 6.5 % Please note range changes. Performed By: #### L 506.1001, L501.9985, L500.4050, L100.0100, L502.0250, L501.9520, L500.4100 #### [facility] [address] [place] [address]. [place], [address] Hemoglobin A1c percentageOrd ered By: Harmeet Reynolds on 06-05-2025 HbA1c (Bld) [Mass fraction] 8.0 % High <5.7 [facility] Comment on above: Normal < 5.7 % Predi abetic 5.7 - 6.4 % Diabetic >or= 6.5 % Please note range changes. Hemoglobin measurementOrdere d By: Harmeet Reynolds on 06-05-2025 Hemoglobin (Bld) [Mass/Vol] 15.1 g/dL High 12.0-15.0 [facility] Immature granulocytes/100 WB C Auto (Bld)Ordered By: Harmeet Reynolds on 06-05-2025 Immature granulocytes/100 WBC (Bld) 0.300 % 0.0-0.9 [facility] Comment on above: IG% - Immature Granu locytes (promyelocytes, myelocytes and metamyelocytes) > 1% indicates that a LEFT SHIFT is Present. LDL calc ser/plasOrdered By: Harmeet Reynolds on 06-05-2025 Cholesterol in LDL [Mass/Vol] 64 mg/dL [facility] Comment on above: Czicmsvkla=966-064 m g/dL & Higher Jvwx=450 mg/dL or greater Laboratory - Chemistry and C hemistry - challengeOrdered By: Harmeet Reynolds on 06-05-2025 AST [Catalytic activity/Vol] 20 U/L <32 [facility] Lipid Profileon 06-05-2025 CHOL:HDL 3.33 Normal [facility] Comment on above: Performed By: #### L 500.4100, L501.9520, L506.1000, L100.0100, L500.4050, L501.9985 #### [facility] [address] [place], [address] Cholesterol [Mass/Vol] 135 mg/dL Normal <=200 [facility] Comment on above: Result Comment: Chol esterol level, Desirable <200 mg/dL Borderline high cholesterol 200-239 mg/dL High cholesterol >=240 mg/dL Recommendations of the NCEP Adult Treatment Panel for the following risk-cutoff thresholds for the [place] population. Performed By: #### L 500.4100, L501.9520, L506.1000, L100.0100, L500.4050, L501.9985 #### [facility] [address] [place], [address] Cholesterol in HDL [Mass/Vol] 41 mg/dL Normal [facility] Comment on above: Result Comment: Jovana onal Cholesterol Education Program (NCEP) guidelines: <40 mg/dL: Low HDL-cholesterol (major risk factor for CHD) >= 60 mg/dL: High HDL-cholesterol (negative risk factor for CHD) HDL-cholesterol is affected by a number of factors, e.g. smoking, exercise, hormones, sex and age. Performed By: #### L 500.4100, L501.9520, L506.1000, L100.0100, L500.4050, L501.9985 #### [facility] [address] [place], [address] Cholesterol in LDL [Mass/Vol] 64 mg/dL Normal [facility] Comment on above: Result Comment: Bord vbsmxm=956-633 mg/dL Higher Fnej=784 mg/dL or greater Performed By: #### L 500.4100, L501.9520, L506.1000, L100.0100, L500.4050, L501.9985 #### [facility] [address] [place], [address] Cholesterol in VLDL [Mass/Vol] 30 mg/dL Normal 5-40 [facility] Comment on above: Performed By: #### L 500.4100, L501.9520, L506.1000, L100.0100, L500.4050, L501.9985 #### [facility] [address] [place], [address] Triglyceride [Mass/Vol] 152 mg/dL Normal [facility] Comment on above: Result Comment: The drugs N-Acetylcysteine and Metamizole may falsely depress this assay. Normal range: <150 mg/dL Borderline High: 150-199 mg/dL High: 200-499 mg/dL Very High: >500 mg/dL Performed By: #### L 500.4100, L501.9520, L506.1000, L100.0100, L500.4050, L501.9985 #### [facility] [address] [place], [address] MCV (mean corpuscular volume ) determinationOrdered By: Harmeet Reynolds on 06-05-2025 MCV (RBC) [Entitic vol] 91.4 fL 81-99 [facility] Mean corpuscular hemoglobin (MCH) determinationOrdered By: Harmeet Reynolds on 06-05-2025 MCH (RBC) [Entitic mass] 31.1 pg 27.0-32.0 [facility] Mean corpuscular hemoglobin concentration (MCHC) determinationOrdered By: Harmeet Reynolds on 06-05-2025 MCHC (RBC) [Mass/Vol] 34.0 g/dL 32-36 [facility] Mean platelet volume determi nationOrdered By: Harmeet Reynolds on 06-05-2025 Platelet mean volume (Bld) [Entitic vol] 11.2 fL 6.2-12.0 [facility] Microalb:Creat Ratio,Random URon 06-05-2025 Creatinine [Mass/Vol] 166.00 mg/dL Normal 28.00-217.00 [facility] Comment on above: Performed By: #### L 506.1001, L501.9985, L500.4050, L100.0100, L502.0250, L501.9520, L500.4100 #### [facility] [address] [place], [place], [id number] MALB:CREAT UNABLE TO CALCULATE Normal [facility] Comment on above: Performed By: #### L 506.1001, L501.9985, L500.4050, L100.0100, L502.0250, L501.9520, L500.4100 #### [facility] [address] [place], [address] MICROALBUMIN,UR < 12.0 Normal NO RANGE EST. [facility] Comment on above: Performed By: #### L 506.1001, L501.9985, L500.4050, L100.0100, L502.0250, L501.9520, L500.4100 #### [facility] [address] [place], [address] Microalbumin/creat ratio urO rdered By: Harmeet Reynolds on 06-05-2025 Urine microalbumin/creatinine ratio measurement UNABLE TO CALCULATE mg/g CRE [facility] Monocyte percentageOrdered B y: Harmeet Reynolds on 06-05-2025 Monocytes/100 WBC (Bld) 9.8 % 0-10 [facility] Neutrophil percentageOrdered By: Harmeet Reynolds on 06-05-2025 Neutrophils/100 WBC (Bld) 48.1 % 47-70 [facility] Nucleated red blood cell per centageOrdered By: Harmeet Reynolds on 06-05-2025 Nucleated RBC/100 WBC (Bld) [Ratio] 0 % 0-5 [facility] Platelet countOrdered By: Yoav Reynolds on 06-05-2025 Platelets (Bld) [#/Vol] 284 10*3/uL 150-450 [facility] Potassium measurement (mass/ volume)Ordered By: Harmeet Reynolds on 06-05-2025 Potassium (Unsp spec) [Mass/Vol] 4.4 mmol/L 3.3-5.1 [facility] RBC Auto (Bld) [#/Vol]Ordere d By: Harmeet Reynolds on 06-05-2025 RBC (Bld) [#/Vol] 4.86 10*6/uL 4.2-5.4 [facility] Random urine creatinine marce urement (mass/volume)Ordered By: Harmeet Reynolds on 06-05-2025 Creatinine Unsp time (U) [Mass/Vol] 166.00 mg/dL 28.00-217.00 [facility] Screening total cholesterol/ high density lipoprotein (HDL) cholesterol ratioOrdered By: Harmeet Reynolds 06-05-2025 Cholesterol.total/Cholest dinora in HDL [Mass ratio] 3.33 {ratio} [facility] Serum creatinine measurement (mass/volume)Ordered By: Harmeet Reynolds on 06-05-2025 Creatinine [Mass/Vol] 0.99 mg/dL 0.70-1.20 [facility] Serum globulin measurementOr dered By: Harmeet Reynolds 06-05-2025 Globulin (S) [Mass/Vol] 3.0 g/dL 2.2-4.2 [facility] Serum glucose measurement (m ass/volume)Ordered By: Harmeet Reynolds 06-05-2025 Glucose [Mass/Vol] 135 mg/dL High 70-99 [facility] Serum or plasma alanine mendiola otransferase (ALT) measurementOrdered By: Harmeet Reyonlds 06-05-2025 ALT [Catalytic activity/Vol] 23 U/L <35 [facility] Serum or plasma albumin marce urement (mass/volume)Ordered By: Harmeet Reynolds on 06-05-2025 Albumin [Mass/Vol] 4.1 g/dL 3.4-4.8 [facility] Serum or plasma albumin/glob ulin mass ratioOrdered By: Harmeet Reynolds 06-05-2025 Albumin/Globulin [Mass ratio] 1.4 {ratio} 0.9-2.4 [facility] Serum or plasma alkaline finesse sphatase measurementOrdered By: Harmeet Reynolds 06-05-2025 ALP [Catalytic activity/Vol] 77 U/L 35-104 [facility] Serum or plasma calcium marce urement (mass/volume)Ordered By: Harmeet Reynolds 06-05-2025 Calcium [Mass/Vol] 9.4 mg/dL 7.6-11.0 [facility] Serum or plasma cholesterol in HDL measurement (mass/volume)Ordered By: Harmeet Reynolds on 06-05-2025 Cholesterol in HDL [Mass/Vol] 41 mg/dL >40 [facility] Comment on above: National Cholesterol Education Program (NCEP) guidelines:<40 mg/dL: Low HDL-cholesterol (major risk factor for CHD)>= 60 mg/dL: High HDL-cholesterol (negative risk factor for CHD)HDL-cholesterol is affected by a number of factors, e.g. smoking, exercise, hormones, sex and age. Serum or plasma cholesterol measurement (mass/volume)Ordered By: Harmeet Reynolds on 06-05-2025 Cholesterol [Mass/Vol] 135 mg/dL <201 [facility] Comment on above: Cholesterol level, D esirable <200 mg/dLBorderline high cholesterol 200-239 mg/dLHigh cholesterol >=240 mg/dLRecommendations of the NCEP Adult Treatment Panel for the following risk-cutoff thresholds for the [place] population. Serum or plasma urea nitroge n measurement (mass/volume)Ordered By: Harmeet Reynolds 06-05-2025 Urea nitrogen [Mass/Vol] 15 mg/dL 4-19 [facility] Sodium levelOrdered By: Harmeet Reynolds 06-05-2025 Sodium [Moles/Vol] 138 mmol/L 133-145 [facility] TSH DL <= 0.005 mIU/L QnOrde red By: Harmeet Reynolds on 06-05-2025 TSH Qn 2.580 uIU/mL 0.300-4.200 [facility] Thyroid Stim Hormone (TSH)on 06-05-2025 TSH 2.580 uIU/mL Normal 0.300-4.200 [facility] Comment on above: Performed By: #### L 500.4100, L501.9520, L506.1000, L100.0100, L500.4050, L501.9985 #### [facility] [address] [place], [place], [id number] Total proteinOrdered By: Harmeet Reynolds on 06-05-2025 Protein [Mass/Vol] 7.1 g/dL 5.9-8.4 [facility] Triglycerides measurementOrd ered By: Harmeet Renyolds on 06-05-2025 Triglyceride [Mass/Vol] 152 mg/dL <199 [facility] Comment on above: The drugs N-Acetylcy steine and Metamizole may falsely depress this assay. Normal range: <150 mg/dLBorderline High: 150-199 mg/dLHigh: 200-499 mg/dLVery High: >500 mg/dL Urine albumin measurement wi detection limit of 20 mg/L or less (mass/volume)Ordered By: Harmeet Reynolds on 06-05-2025 Albumin DL <= 20 mg/L (U) [Mass/Vol] < 12.0 mg/L NO RANGE EST. [facility] Vitamin D,25 Hydroxyon 06-05 Vitamin D 25-OH 51.9 ng/mL Normal 30-100 [facility] Comment on above: Result Comment: Earlene min D Status Deficiency: <20 ng/mL (50nmol/L) Insufficiency: 20-30 ng/mL (50-75 nmol/L) Sufficiency: 30-100 ng/mL (75-250 nmol/L) Toxicity: >100 ng/mL (>250 nmol/L) Performed By: #### L 500.4100, L501.9520, L506.1000, L100.0100, L500.4050, L501.9985 #### [facility] [address] [place], [place], [address] White blood cell (WBC) count Ordered By: Harmeet Reynolds on 06-05-2025 WBC (Bld) [#/Vol] 5.9 10*3/uL 4.4-11.0 [facility] CBC W/Diff, Automatedon 11-26 Absolute Lymph 1.90 X10 3/uL Normal 0.83-4.51 [facility] Comment on above: Performed By: #### L 500.4100, L501.9520, L506.1000, L100.0100, L500.4050, L501.9985 #### [facility] [address] [place], [address] Absolute Neut 3.8 X10 3/uL Normal 2.0-7.7 [facility] Comment on above: Performed By: #### L 500.4100, L501.9520, L506.1000, L100.0100, L500.4050, L501.9985 #### [facility] [address] [place], [address] Basophils/100 WBC (Bld) 0.8 % Normal 0-1 [facility] Comment on above: Performed By: #### L 500.4100, L501.9520, L506.1000, L100.0100, L500.4050, L501.9985 #### [facility] [address] [place], [address] Eosinophils/100 WBC (Bld) 1.8 % Normal 0-5 [facility] Comment on above: Performed By: #### L 500.4100, L501.9520, L506.1000, L100.0100, L500.4050, L501.9985 #### [facility] [address] [place], [address] Erythrocyte distribution width (RBC) [Ratio] 12.8 % Normal 11.6-14.6 [facility] Comment on above: Performed By: #### L 500.4100, L501.9520, L506.1000, L100.0100, L500.4050, L501.9985 #### [facility] [address] [place], [address] Hematocrit (Bld) [Volume fraction] 44.6 % Normal 37-47 [facility] Comment on above: Performed By: #### L 500.4100, L501.9520, L506.1000, L100.0100, L500.4050, L501.9985 #### [facility] [address] [place], [address] Hemoglobin (Bld) [Mass/Vol] 15.0 g/dL Normal 12.0-15.0 [facility] Comment on above: Performed By: #### L 500.4100, L501.9520, L506.1000, L100.0100, L500.4050, L501.9985 #### [facility] [address] [place], [address] IG% 0.200 Normal 0.0-0.9 [facility] Comment on above: Result Comment: IG% - Immature Granulocytes (promyelocytes, myelocytes and metamyelocytes) > 1% indicates that a LEFT SHIFT is Present. Performed By: #### L 500.4100, L501.9520, L506.1000, L100.0100, L500.4050, L501.9985 #### [facility] [address] [place], [address] Lymphocytes/100 WBC (Bld) 29.1 % Normal 19-41 [facility] Comment on above: Performed By: #### L 500.4100, L501.9520, L506.1000, L100.0100, L500.4050, L501.9985 #### [facility] [address] [place], [address] MCH (RBC) [Entitic mass] 31.1 pg Normal 27.0-32.0 [facility] Comment on above: Performed By: #### L 500.4100, L501.9520, L506.1000, L100.0100, L500.4050, L501.9985 #### [facility] [address] [place], [address] MCHC (RBC) [Mass/Vol] 33.6 g/dL Normal 32-36 [facility] Comment on above: Performed By: #### L 500.4100, L501.9520, L506.1000, L100.0100, L500.4050, L501.9985 #### [facility] [address] [place], [address] MCV (RBC) [Entitic vol] 92.5 fL Normal 81-99 [facility] Comment on above: Performed By: #### L 500.4100, L501.9520, L506.1000, L100.0100, L500.4050, L501.9985 #### [facility] [address] [place], [address] Monocytes/100 WBC (Bld) 10.6 % High 0-10 [facility] Comment on above: Performed By: #### L 500.4100, L501.9520, L506.1000, L100.0100, L500.4050, L501.9985 #### [facility] [address] [place], [address] Neutrophils/100 WBC (Bld) 57.5 % Normal 47-70 [facility] Comment on above: Performed By: #### L 500.4100, L501.9520, L506.1000, L100.0100, L500.4050, L501.9985 #### [facility] [address] [place], [address] Nucleated RBC (Bld) [#/Vol] 0 10*3/uL Normal 0-5 [facility] Comment on above: Performed By: #### L 500.4100, L501.9520, L506.1000, L100.0100, L500.4050, L501.9985 #### [facility] [address] [place], [address] Platelet mean volume (Bld) [Entitic vol] 11.8 fL Normal 6.2-12.0 [facility] Comment on above: Performed By: #### L 500.4100, L501.9520, L506.1000, L100.0100, L500.4050, L501.9985 #### [facility] [address] [place], [address] Platelets (Bld) [#/Vol] 274 10*3/uL Normal 150-450 [facility] Comment on above: Performed By: #### L 500.4100, L501.9520, L506.1000, L100.0100, L500.4050, L501.9985 #### [facility] [address] [place], [address] RBC (Bld) [#/Vol] 4.82 10*6/uL Normal 4.2-5.4 [facility] Comment on above: Performed By: #### L 500.4100, L501.9520, L506.1000, L100.0100, L500.4050, L501.9985 #### [facility] [address] [place], [address] RDW SD 43.4 fl Normal 35.1-43.9 [facility] Comment on above: Performed By: #### L 500.4100, L501.9520, L506.1000, L100.0100, L500.4050, L501.9985 #### [facility] [address] [place], [address] WBC (Bld) [#/Vol] 6.5 10*3/uL Normal 4.4-11.0 [facility] Comment on above: Performed By: #### L 500.4100, L501.9520, L506.1000, L100.0100, L500.4050, L501.9985 #### [facility] [address] [place], [address] Comprehensive Metabolic Prof ilon 12-05-2024 Albumin [Mass/Vol] 3.8 g/dL Normal 3.2-5.0 [facility] Comment on above: Performed By: #### L 500.4100, L501.9520, L506.1000, L100.0100, L500.4050, L501.9985 #### [facility] [address] [place], [address] Albumin/Globulin [Mass ratio] 1.1 {ratio} Normal 0.9-2.4 [facility] Comment on above: Performed By: #### L 500.4100, L501.9520, L506.1000, L100.0100, L500.4050, L501.9985 #### [facility] [address] [place], [address] ALK P 74 U/L Normal 45-117 [facility] Comment on above: Performed By: #### L 500.4100, L501.9520, L506.1000, L100.0100, L500.4050, L501.9985 #### [facility] [address] [place], [address] ALT [Catalytic activity/Vol] 26 U/L Normal 13-56 [facility] Comment on above: Performed By: #### L 500.4100, L501.9520, L506.1000, L100.0100, L500.4050, L501.9985 #### [facility] [address] [place], [address] AST [Catalytic activity/Vol] 14 U/L Low 15-37 [facility] Comment on above: Performed By: #### L 500.4100, L501.9520, L506.1000, L100.0100, L500.4050, L501.9985 #### [facility] [address] [place], [address] Bilirubin [Mass/Vol] 0.40 mg/dL Normal 0.20-1.00 [facility] Comment on above: Result Comment: For patients on eltrombopag therapy, use of Dimension [place] TBIL is not recommended. Performed By: #### L 500.4100, L501.9520, L506.1000, L100.0100, L500.4050, L501.9985 #### [facility] [address] [place], [address] BUN/CRE 17.6 RATIO Normal 10-20 [facility] Comment on above: Performed By: #### L 500.4100, L501.9520, L506.1000, L100.0100, L500.4050, L501.9985 #### [facility] [address] [place], [address] CA,Total 9.0 mg/dL Normal 8.5-10.1 [facility] Comment on above: Performed By: #### L 500.4100, L501.9520, L506.1000, L100.0100, L500.4050, L501.9985 #### [facility] [address] [place], [address] Chloride [Moles/Vol] 105 mmol/L Normal 98-107 [facility] Comment on above: Performed By: #### L 500.4100, L501.9520, L506.1000, L100.0100, L500.4050, L501.9985 #### [facility] [address] [place], [address] CO2 [Moles/Vol] 28.0 mmol/L Normal 21.0-32.0 [facility] Comment on above: Performed By: #### L 500.4100, L501.9520, L506.1000, L100.0100, L500.4050, L501.9985 #### [facility] [address] [place], [address] Creatinine [Mass/Vol] 0.97 mg/dL Normal 0.55-1.02 [facility] Comment on above: Result Comment: The validity of the calculated GFR GFRAA in patients over 70 years has not been determined. Clinical correlation is essential. Performed By: #### L 500.4100, L501.9520, L506.1000, L100.0100, L500.4050, L501.9985 #### [facility] [address] [place], [address] EST GFR - AA 74 mL/min Normal >60 [facility] Comment on above: Result Comment: Afri can [place] GFR Calc Performed By: #### L 500.4100, L501.9520, L506.1000, L100.0100, L500.4050, L501.9985 #### [facility] [address] [place], [address] GAP 5 Normal 5-15 [facility] Comment on above: Performed By: #### L 500.4100, L501.9520, L506.1000, L100.0100, L500.4050, L501.9985 #### [facility] [address] [place], [address] GFR/1.73 sq M.predicted among non-blacks MDRD (S/P/Bld) [Vol rate/Area] 61 mL/min/{1.73_m2} Normal >60 [facility] Comment on above: Result Comment: Non- GFR Calc Performed By: #### L 500.4100, L501.9520, L506.1000, L100.0100, L500.4050, L501.9985 #### [facility] [address] [place], [address] Globulin (S) [Mass/Vol] 3.5 g/dL Normal 2.2-4.2 [facility] Comment on above: Performed By: #### L 500.4100, L501.9520, L506.1000, L100.0100, L500.4050, L501.9985 #### [facility] [address] [place], [address] Glucose [Mass/Vol] 132 mg/dL High 74-106 [facility] Comment on above: Result Comment: Fast ing Glucose result greater than or equal to 126 mg/dL suggests DIABETES MELLITUS per A.D.A. criteria. Performed By: #### L 500.4100, L501.9520, L506.1000, L100.0100, L500.4050, L501.9985 #### [facility] [address] [place], [address] Potassium [Moles/Vol] 4.3 mmol/L Normal 3.5-5.1 [facility] Comment on above: Performed By: #### L 500.4100, L501.9520, L506.1000, L100.0100, L500.4050, L501.9985 #### [facility] [address] [place], [address] Sodium [Moles/Vol] 138 mmol/L Normal 136-145 [facility] Comment on above: Performed By: #### L 500.4100, L501.9520, L506.1000, L100.0100, L500.4050, L501.9985 #### [facility] [address] [place], [address] T PROT 7.3 g/dL Normal 6.4-8.2 [facility] Comment on above: Performed By: #### L 500.4100, L501.9520, L506.1000, L100.0100, L500.4050, L501.9985 #### [facility] [address] [place], [address] Urea nitrogen [Mass/Vol] 17 mg/dL Normal 7-18 [facility] Comment on above: Performed By: #### L 500.4100, L501.9520, L506.1000, L100.0100, L500.4050, L501.9985 #### [facility] [address] [place], [address] Hemoglobin A1con 12-05-2024 HbA1c (Bld) [Mass fraction] 6.8 % High 3.8-5.6 [facility] Comment on above: Result Comment: Norm al < 5.7 % Prediabetic 5.7 - 6.4 % Diabetic >or= 6.5 % Please note range changes. Performed By: #### L 500.4100, L501.9520, L506.1000, L100.0100, L500.4050, L501.9985 #### [facility] [address] [place], [address] Lipid Profileon 12-05-2024 Cholesterol [Mass/Vol] 124 mg/dL Normal 200 [facility] Comment on above: Result Comment: <200 mg/dL Desirable 200-240 mg/dL Borderline >240 mg/dL High Risk Performed By: #### L 500.4100, L501.9520, L506.1000, L100.0100, L500.4050, L501.9985 #### [facility] [address] [place], [address] Cholesterol in HDL [Mass/Vol] 48 mg/dL Normal [facility] Comment on above: Result Comment: The drugs N-Acetylcysteine and Metamizole may falsely depress this assay. Reference Range HDL <40 mg/dL Low HDL Cholesterol HDL >or= 60 mg/dL High HDL Cholesterol Performed By: #### L 500.4100, L501.9520, L506.1000, L100.0100, L500.4050, L501.9985 #### [facility] [address] [place], [address] Cholesterol in LDL [Mass/Vol] 58 mg/dL Normal 0-130 [facility] Comment on above: Performed By: #### L 500.4100, L501.9520, L506.1000, L100.0100, L500.4050, L501.9985 #### [facility] [address] [place], [address] Cholesterol in VLDL [Mass/Vol] 18 mg/dL Normal 5-40 [facility] Comment on above: Performed By: #### L 500.4100, L501.9520, L506.1000, L100.0100, L500.4050, L501.9985 #### [facility] [address] [place], [address] Triglyceride [Mass/Vol] 92 mg/dL Normal [facility] Comment on above: Result Comment: The drugs N-Acetylcysteine and Metamizole may falsely depress this assay. Serum Triglycerides Reference Interval Normal <150 mg/dL Borderline high 150 - 199 mg/dL High 200 - 499 mg/dL Very High > or = 500 mg/dL Performed By: #### L 500.4100, L501.9520, L506.1000, L100.0100, L500.4050, L501.9985 #### [facility] [address] [place], [address] Thyroid Stim Hormone (TSH)on 12-05-2024 TSH 1.890 uIU/mL Normal 0.358-3.740 [facility] Comment on above: Performed By: #### L 500.4100, L501.9520, L506.1000, L100.0100, L500.4050, L501.9985 #### [facility] [address] [place], [address] Vitamin D,25 Hydroxyon 12-05 Vitamin D 25-OH 77.0 ng/mL Normal [facility] Comment on above: Result Comment: Earlene min D 25(OH) Status Range Deficiency <20 ng/mL (50nmol/L) Insufficiency 20 - 30 ng/mL (50 - 75 nmol/L) Sufficiency 30 - 100 ng/mL (75 - 250 nmol/L) Toxicity >100 ng/mL (>250 nmol/L) Performed By: #### L 500.4100, L501.9520, L506.1000, L100.0100, L500.4050, L501.9985 #### [facility] [address] [place], [address] Dexa Bone Density Studyon Dexa Bone Density Study [facility] Imaging Services [address] [place], [place] [address] Dexa Bone Density Study MR#: [id number] Acct: [id number] Name: EDNA RAYO Rep #: [id number] : 1960 F 64 From: Alexander lamas MD PCP: Dr. Harmeet Reynolds MD Status: [facility] Study: Dexa Bone Density Study Date of Exam: 06/26/24 Exam# [id number] Ordering Dr: Harmeet Reynolds MD -[id number] STUDY: DUAL ENERGY X-RAY ABSORPTIOMETRY / DXA REASON FOR EXAM: Female, 64 years old. [id number] TECHNIQUE: Bone Mineral Density (BMD) measurements of lumbar spine and bilateral hips were obtained. COMPARISON: None. FINDINGS: Lumbar Spine (L1-L4): g/cm2 (0.946) / T-score (-0.3) / Z-score (1.4) Findings are suggestive of normal bone density with a low fracture risk. Left Femur Total: g/cm2 (0.976) / T-score (0.3) / Z-score (1.6) Left Femoral Neck: g/cm2 (0.832) / T-score (-0.2) / Z-score (1.4) Right Femur Total: g/cm2 (0.978) / T-score (0.3) / Z-score (1.6) Right Femoral Neck: g/cm2 (0.744) / T-score (-0.9) / Z-score (0.6) BD/Dexa Bone Density Study IMPRESSION: The patient is considered normal as outlined below according to World Andrew Organization (WHO) criteria with a low fracture risk. Reference Information: The T-score is the number of standard deviations above or below the standard which is normal for young adults at their peak bone mineral density. The World Health Organization (WHO) interprets the T-scores as follows: Above -1 Normal bone density Between -1 and -2.5 Osteopenia Equal to / or below -2.5 Osteoporosis As a practical clinical guideline, osteopenia may be graded as follows: Mild -1 through -1.5 Moderate -1.6 through -2.0 Severe -2.1 through -2.4 The Z-score is the number of standard deviations above or below age-matched controls. A Z-score of less than -1.5 would be considered abnormal. References: 1. NIH Osteoporosis and Related Bone Diseases www osteo.org 2. International Society for Clinical Densitometry www iscd.org 3. National Osteoporosis Foundation www nof.org Electronically Signed: Alexander Orozco MD at 15:17 EDT , CC: Dr. Harmeet Reynolds MD Financial Services Specialist: Signed Normal [facility] SCRN MAMM (CAD)W/WELLINGTON sanz 06-26-2024 SCRN MAMM (CAD)W/WELILNGTON JOHNSON [facility] Imaging Services [address] [place], [place] [address] SCRN MAMM (CAD)W/WELLINGTON JOHNSON MR#: [id number] Acct: [id number] Name: EDNA RAYO Rep #: [id number] : 1960 F 64 From: Alexander lamas MD PCP: Dr. Harmeet Reynolds MD Status: [facility] Study: SCRN MAMM (CAD)W/WELLINGTON BILAT Date of Exam: 12/19 Exam# [id number] Ordering Dr: Harmeet Reynolds MD -[id number] MAMMOGRAPHY - BILATERAL SCREENING REASON FOR EXAM: Female, 64 years old. Routine annual screening examination. PERTINENT HISTORY: Non-contributory. TECHNIQUE: Digital bilateral breast wellington (3D mammographic acquisition) in the CC and MLO projections. 2-D mediolateral oblique (MLO) and craniocaudad (CC) views of both breasts were obtained. CAD: Full Field Digital Mammography with Computer Added Detection was performed. COMPARISON: Comparison is made with prior study dated June 08, 2021. FINDINGS: Breast Composition: There are scattered areas of fibroglandular density. There are no dominant masses or suspicious calcifications. Stable bilateral fat containing axillary lymph nodes. No other significant abnormalities are identified. There has been no significant change since the prior study. BI/SCRN MAMM (CAD)W/WELLINGTON BILAT IMPRESSION: Stable bilateral screening mammogram. Yearly follow-up mammogram recommended. (A) ASSESSMENT CATEGORY: BIRADS Category 2: Benign. A letter regarding these results will be sent to the patient by the facility within 30 days. Approximately 10% of breast cancers are not detected by mammography. A normal mammogram should not delay biopsy of a clinically suspicious abnormality. [id number] Electronically Signed: Alexander Orozco MD at 15:01 EDT , CC: Dr. Harmeet Reynolds MD Financial Services Specialist: Signed Normal [facility] Absolute lymphocyte countOrd ered By: Harmeet Reynolds on 06-01-2023 Lymphocytes Auto (Unsp spec) [#/Vol] 1.62 10*3/uL 0.83-4.51 [facility] Basophil percentageOrdered B y: Harmeet Reynolds on 06-01-2023 Basophils/100 WBC (Bld) 0.7 % 0-1 [facility] Bilirubin [Mass/Vol] 0.40 mg/dL 0.20-1.00 [facility] Comment on above: For patients on eltr ombopag therapy, use of Dimension [place] TBIL is not recommended. Chloride [Moles/Vol] 104 mmol/L 98-107 [facility] Eosinophils/100 WBC (Bld) 1.9 % 0-5 [facility] Glucose [Mass/Vol] 119 mg/dL 74-106 [facility] Comment on above: Fasting Glucose resu lt from 100 to 125 mg/dL suggests IMPAIRED HOMEOSTASIS per A.D.A. criteria. Neutrophils (Bld) [#/Vol] 3.1 10*3/uL 2.0-7.7 [facility] Neutrophils/100 WBC (Bld) 57.6 % 47-70 [facility] Potassium [Moles/Vol] 4.2 mmol/L 3.5-5.1 [facility] Protein [Mass/Vol] 7.5 g/dL 6.4-8.2 [facility] Sodium [Moles/Vol] 139 mmol/L 136-145 [facility] WBC (Bld) [#/Vol] 5.4 10*3/uL 4.4-11.0 [facility] Blood erythrocytes count (nu mber/volume)Ordered By: Harmeet Reynolds on 06-01-2023 RBC (Bld) [#/Vol] 4.77 10*6/uL 4.2-5.4 [facility] Blood hemoglobin measurement (mass/volume)Ordered By: Harmeet Reynolds on 06-01-2023 Hemoglobin (Bld) [Mass/Vol] 14.9 g/dL 12.0-15.0 [facility] Blood lymphocytes/100 leukoc ytesOrdered By: [facility] on 06-01-2023 Lymphocytes/100 WBC (Bld) 30.0 % 19-41 [facility] Blood monocytes/100 leukocyt esOrdered By: [facility] 06-01-2023 Monocytes/100 WBC (Bld) 9.6 % 0-10 [facility] Blood platelet mean volumeOr dered By: [facility] on 06-01-2023 Platelet mean volume (Bld) [Entitic vol] 11.4 fL 6.2-12.0 [facility] Determination of erythrocyte mean corpuscular volume (MCV)Ordered By: [facility] 06-01-2023 MCV (RBC) [Entitic vol] 93.3 fL 81-99 [facility] Hematocrit Auto (Bld) [Volum e fraction]Ordered By: [facility] 06-01-2023 Hematocrit (Bld) [Volume fraction] 44.5 % 37-47 [facility] Laboratory - Chemistry and C hemistry - challengeOrdered By: [facility] 06-01-2023 ALP [Catalytic activity/Vol] 72 U/L 45-117 [facility] ALT [Catalytic activity/Vol] 23 U/L 13-56 [facility] CO2 [Moles/Vol] 28.0 mmol/L 21.0-32.0 [facility] Globulin (S) [Mass/Vol] 3.8 g/dL 2.2-4.2 [facility] Urea nitrogen/Creatinine [Mass ratio] 14.4 mg/mg 10-20 [facility] Laboratory - Hematology and Cell countsOrdered By: [facility] 06-01-2023 Erythrocyte distribution width (RBC) [Entitic vol] 43.9 fL 35.1-43.9 [facility] Erythrocyte distribution width (RBC) [Ratio] 12.7 % 11.6-14.6 [facility] Immature granulocytes/100 WBC (Bld) 0.200 % 0.0-0.9 [facility] Comment on above: IG% - Immature Granu locytes (promyelocytes, myelocytes and metamyelocytes) > 1% indicates that a LEFT SHIFT is Present. MCH (RBC) [Entitic mass] 31.2 pg 27.0-32.0 [facility] Nucleated RBC/100 WBC (Bld) [Ratio] 0 % 0-5 [facility] MCHC Auto (RBC) [Mass/Vol]Or dered By: Harmeet Reynolds on 06-01-2023 MCHC (RBC) [Mass/Vol] 33.5 g/dL 32-36 [facility] No Panel InformationOrdered By: Harmeet Reynolds on 06-01-2023 Estimated GFR (MDRD) Amer 68 mL/min >60 [facility] Comment on above: GFR Calc Estimated GFR (MDRD) Non-Af Amer 57 mL/min >60 [facility] Comment on above: Non- GFR Calc Thyroid Stimulating Hormone (TSH) 2.27 uIU/mL 0.358-3.74 [facility] Vitamin D 25-Hydroxy 84.8 ng/mL [facility] Comment on above: Vitamin D 25(OH) Sta tus Range Deficiency <20 ng/mL (50nmol/L) Insufficiency 20 - 30 ng/mL (50 - 75 nmol/L) Sufficiency 30 - 100 ng/mL (75 - 250 nmol/L) Toxicity >100 ng/mL (>250 nmol/L) Platelets bldOrdered By: Harmeet Reynolds on 06-01-2023 Platelets (Bld) [#/Vol] 300 10*3/uL 150-450 [facility] Serum or plasma albumin marce urement (mass/volume)Ordered By: Harmeet Reynolds on 06-01-2023 Albumin [Mass/Vol] 3.7 g/dL 3.2-5.0 [facility] Serum or plasma albumin/glob ulin mass ratioOrdered By: Harmeet Reynolds 06-01-2023 Albumin/Globulin [Mass ratio] 1.0 {ratio} 0.9-2.4 [facility] Serum or plasma calcium marce urement (mass/volume)Ordered By: Harmeet Reynolds on 06-01-2023 Calcium [Mass/Vol] 9.3 mg/dL 8.5-10.1 [facility] Serum or plasma creatinine m easurement (mass/volume)Ordered By: Harmeet Reynolds on 06-01-2023 Creatinine [Mass/Vol] 1.04 mg/dL 0.55-1.02 [facility] Comment on above: The validity of the calculated GFR & GFRAA in patients over 70 years has not been determined. Clinical correlation is essential. Serum or plasma urea nitroge n measurement (mass/volume)Ordered By: Harmeet Reynolds on 06-01-2023 Urea nitrogen [Mass/Vol] 15 mg/dL 7-18 [facility] Thin prep Papanicolaou smear with manual screeningOrdered By: Harmeet Reynolds on 06-01-2023 Thin prep Papanicolaou smear with manual screening 15 U/L 15-37 [facility] Thin prep Papanicolaou smear with manual screening 7 5-15 [facility] Absolute lymphocyte counton 09-12-2022 Lymphocytes Auto (Unsp spec) [#/Vol] 1.36 10*3/uL 0.83-4.51 [facility] Work Phone: Basophil percentageon 2021 Basophils/100 WBC (Bld) 0.5 % 0-1 [facility] Work Phone: [phone] Chloride [Moles/Vol] 105 mmol/L 98-107 [facility] Work Phone: [phone] Eosinophils/100 WBC (Bld) 0.3 % 0-5 [facility] Work Phone: [phone] Glucose [Mass/Vol] 174 mg/dL 74-106 [facility] Work Phone: Comment on above: Fasting Glucose resu lt greater than or equal to 126 mg/dL suggests DIABETES MELLITUS per A.D.A. criteria. Neutrophils (Bld) [#/Vol] 5.8 10*3/uL 2.0-7.7 [facility] Work Phone: [phone] Neutrophils/100 WBC (Bld) 75.7 % 47-70 [facility] Work Phone: [phone] Potassium [Moles/Vol] 4.3 mmol/L 3.5-5.1 [facility] Work Phone: [phone] Comment on above: Moderate Hemolysis, Result may be falsely increased. Sodium [Moles/Vol] 137 mmol/L 136-145 [facility] Work Phone: WBC (Bld) [#/Vol] 7.6 10*3/uL 4.4-11.0 [facility] Work Phone: Blood erythrocytes count (nu mber/volume)on 09-12-2022 RBC (Bld) [#/Vol] 4.92 10*6/uL 4.2-5.4 [facility] Work Phone: Blood hemoglobin measurement (mass/volume)on 09-12-2022 Hemoglobin (Bld) [Mass/Vol] 15.5 g/dL 12.0-15.0 [facility] Work Phone: Blood lymphocytes/100 leukoc yteson 09-12-2022 Lymphocytes/100 WBC (Bld) 17.8 % 19-41 [facility] Work Phone: Blood monocytes/100 leukocyt eson 09-12-2022 Monocytes/100 WBC (Bld) 5.4 % 0-10 [facility] Work Phone: Blood platelet mean volumeon 09-12-2022 Platelet mean volume (Bld) [Entitic vol] 12.3 fL 6.2-12.0 [facility] Work Phone: Determination of erythrocyte mean corpuscular volume (MCV)on 09-12-2022 MCV (RBC) [Entitic vol] 92.9 fL 81-99 [facility] Work Phone: Hematocrit Auto (Bld) [Volum e fraction]on 09-12-2022 Hematocrit (Bld) [Volume fraction] 45.7 % 37-47 [facility] Work Phone: Laboratory - Chemistry and C hemistry - challengeon 09-12-2022 CO2 [Moles/Vol] 25.0 mmol/L 21.0-32.0 [facility] Work Phone: Urea nitrogen/Creatinine [Mass ratio] 16.4 mg/mg 10- [facility] Work Phone: Laboratory - Hematology and Cell countson 09-12-2022 Erythrocyte distribution width (RBC) [Entitic vol] 43.1 fL 35.1-43.9 [facility] Work Phone: Erythrocyte distribution width (RBC) [Ratio] 12.6 % 11.6-14.6 [facility] Work Phone: Immature granulocytes/100 WBC (Bld) 0.300 % 0.0-0.9 [facility] Work Phone: Comment on above: IG% - Immature Granu locytes (promyelocytes, myelocytes and metamyelocytes) > 1% indicates that a LEFT SHIFT is Present. MCH (RBC) [Entitic mass] 31.5 pg 27.0-32.0 [facility] Work Phone: Nucleated RBC/100 WBC (Bld) [Ratio] 0 % 0-5 [facility] Work Phone: MCHC Auto (RBC) [Mass/Vol]on 09-12-2022 MCHC (RBC) [Mass/Vol] 33.9 g/dL 32-36 [facility] Work Phone: No Panel Informationon 09-12 Estimated GFR (MDRD) Amer 79 mL/min >60 [facility] Work Phone: Comment on above: GFR Calc Estimated GFR (MDRD) Non-Af Amer 66 mL/min >60 [facility] Work Phone: Comment on above: Non- GFR Calc Platelets bldon 09-12-2022 Platelets (Bld) [#/Vol] 268 10*3/uL 150-450 [facility] Work Phone: Serum or plasma calcium marce urement (mass/volume)on 09-12-2022 Calcium [Mass/Vol] 9.6 mg/dL 8.5-10.1 [facility] Work Phone: Serum or plasma creatinine m easurement (mass/volume)on 09-12-2022 Creatinine [Mass/Vol] 0.92 mg/dL 0.55-1.02 [facility] Work Phone: Comment on above: The validity of the calculated GFR & GFRAA in patients over 70 years has not been determined. Clinical correlation is essential. Serum or plasma urea nitroge n measurement (mass/volume)on 09-12-2022 Urea nitrogen [Mass/Vol] 15 mg/dL - [facility] Work Phone: Thin prep Papanicolaou smear with manual screeningon 09-12-2022 Thin prep Papanicolaou smear with manual screening 7 - [facility] Work Phone: Absolute lymphocyte counton 05-18-2022 Lymphocytes Auto (Unsp spec) [#/Vol] 1.85 10*3/uL 0.83-4.51 [facility] Work Phone: Basophil percentageon 2021 Basophils/100 WBC (Bld) 0.6 % 0-1 [facility] Work Phone: Bilirubin [Mass/Vol] 0.30 mg/dL 0.20-1.00 [facility] Work Phone: Comment on above: For patients on eltr ombopag therapy, use of Dimension [place] TBIL is not recommended. Chloride [Moles/Vol] 103 mmol/L 98-107 [facility] Work Phone: Eosinophils/100 WBC (Bld) 2.1 % 0-5 [facility] Work Phone: Glucose [Mass/Vol] 163 mg/dL 74-106 [facility] Work Phone: Comment on above: Fasting Glucose resu lt greater than or equal to 126 mg/dL suggests DIABETES MELLITUS per A.D.A. criteria. Neutrophils (Bld) [#/Vol] 4.3 10*3/uL 2.0-7.7 [facility] Work Phone: Neutrophils/100 WBC (Bld) 60.0 % 47-70 [facility] Work Phone: Potassium [Moles/Vol] 4.2 mmol/L 3.5-5.1 [facility] Work Phone: Comment on above: Slight Hemolysis, Re sult may be falsely increased. Protein [Mass/Vol] 7.5 g/dL 6.4-8.2 [facility] Work Phone: Sodium [Moles/Vol] 136 mmol/L 136-145 [facility] Work Phone: WBC (Bld) [#/Vol] 7.2 10*3/uL 4.4-11.0 [facility] Work Phone: Blood erythrocytes count (nu mber/volume)on 05-18-2022 RBC (Bld) [#/Vol] 4.76 10*6/uL 4.2-5.4 [facility] Work Phone: Blood hemoglobin measurement (mass/volume)on 05-18-2022 Hemoglobin (Bld) [Mass/Vol] 14.8 g/dL 12.0-15.0 [facility] Work Phone: Blood lymphocytes/100 leukoc yteson 05-18-2022 Lymphocytes/100 WBC (Bld) 25.7 % 19-41 [facility] Work Phone: Blood monocytes/100 leukocyt eson 05-18-2022 Monocytes/100 WBC (Bld) 11.3 % 0-10 [facility] Work Phone: Blood platelet mean volumeon 05-18-2022 Platelet mean volume (Bld) [Entitic vol] 11.8 fL 6.2-12.0 [facility] Work Phone: Determination of erythrocyte mean corpuscular volume (MCV)on 05-18-2022 MCV (RBC) [Entitic vol] 96.4 fL 81-99 [facility] Work Phone: Hematocrit Auto (Bld) [Volum e fraction]on 05-18-2022 Hematocrit (Bld) [Volume fraction] 45.9 % 37-47 [facility] Work Phone: Laboratory - Chemistry and C hemistry - challengeon 05-18-2022 ALP [Catalytic activity/Vol] 75 U/L 45-117 [facility] Work Phone: [phone] ALT [Catalytic activity/Vol] 37 U/L 13-56 [facility] Work Phone: [phone] CO2 [Moles/Vol] 27.0 mmol/L 21.0-32.0 [facility] Work Phone: [phone] Globulin (S) [Mass/Vol] 3.7 g/dL 2.2-4.2 [facility] Work Phone: [phone] Urea nitrogen/Creatinine [Mass ratio] 23.9 mg/mg 10-20 [facility] Work Phone: [phone] Laboratory - Hematology and Cell countson 05-18-2022 Erythrocyte distribution width (RBC) [Entitic vol] 44.3 fL 35.1-43.9 [facility] Work Phone: [phone] Erythrocyte distribution width (RBC) [Ratio] 12.5 % 11.6-14.6 [facility] Work Phone: [phone] Immature granulocytes/100 WBC (Bld) 0.300 % 0.0-0.9 [facility] Work Phone: Comment on above: IG% - Immature Granu locytes (promyelocytes, myelocytes and metamyelocytes) > 1% indicates that a LEFT SHIFT is Present. MCH (RBC) [Entitic mass] 31.1 pg 27.0-32.0 [facility] Work Phone: [phone] Nucleated RBC/100 WBC (Bld) [Ratio] 0 % 0-5 [facility] Work Phone: [phone] MCHC Auto (RBC) [Mass/Vol]on 05-18-2022 MCHC (RBC) [Mass/Vol] 32.2 g/dL 32-36 [facility] Work Phone: No Panel Informationon 05-18 Estimated GFR (MDRD) Amer 75 mL/min >60 [facility] Work Phone: Comment on above: GFR Calc Estimated GFR (MDRD) Non-Af Amer 62 mL/min >60 [facility] Work Phone: Comment on above: Non- GFR Calc Thyroid Stimulating Hormone (TSH) 1.86 uIU/mL 0.358-3.74 [facility] Work Phone: Platelets bldon 05-18-2022 Platelets (Bld) [#/Vol] 309 10*3/uL 150-450 [facility] Work Phone: Serum or plasma albumin marce urement (mass/volume)on 05-18-2022 Albumin [Mass/Vol] 3.8 g/dL 3.2-5.0 [facility] Work Phone: Serum or plasma albumin/glob ulin mass ratioon 05-18-2022 Albumin/Globulin [Mass ratio] 1.0 {ratio} 0.9-2.4 [facility] Work Phone: Serum or plasma calcium marce urement (mass/volume)on 05-18-2022 Calcium [Mass/Vol] 9.0 mg/dL 8.5-10.1 [facility] Work Phone: Serum or plasma creatinine m easurement (mass/volume)on 05-18-2022 Creatinine [Mass/Vol] 0.96 mg/dL 0.55-1.02 [facility] Work Phone: Comment on above: The validity of the calculated GFR & GFRAA in patients over 70 years has not been determined. Clinical correlation is essential. Serum or plasma urea nitroge n measurement (mass/volume)on 05-18-2022 Urea nitrogen [Mass/Vol] 23 mg/dL 7-18 [facility] Work Phone: Thin prep Papanicolaou smear with manual screeningon 05-18-2022 Thin prep Papanicolaou smear with manual screening 16 U/L 15-37 [facility] Work Phone: Comment on above: Slight Hemolysis, Re sult may be falsely increased. Thin prep Papanicolaou smear with manual screening 6 5-15 [facility] Work Phone: Encounters Encounter Date Encounter Type Care Provider Facility Start: 06-05-2025 End: 06-05-[address] Harmeet Reynolds MD Work Phone: -Laboratory Phy Office 3rd Flr Start: 06-05-2025 End: 06-05-[address] Harmeet Reynolds MD -Laboratory Phy Office 3rd Flr Start: 06-05-2025 End: 06-05-2025 ambulatory [facility] Facility:[facility] Start: 12-05-2024 End: 12-05-2024 ambulatory [facility] Facility:[facility] Start: 06-26-2024 End: 06-26-2024 ambulatory [facility] Facility:[facility] Start: 06-01-2023 End: 06-01-2023 ambulatory [facility] Work Phone: Start: 06-01-2023 End: 06-01-2023 Patient encounter procedure [facility]-Laboratory, Phy Office 3rd Flr Start: 09-12-2022 End: 09-12-2022 ambulatory [facility] Work Phone: Start: 09-12-2022 End: 09-12-2022 Patient encounter procedure [facility]-Laboratory, Phy Office 3rd Flr Start: 09-08-2022 Patient encounter procedure [facility]-Laboratory, Specimen Start: 05-18-2022 End: 05-18-2022 Patient encounter procedure [facility]-Laboratory, Phy Office 3rd Flr Start: 10-28-2013 End: 10-28-2013 Telephone encounter Jordyn De Los Santos Work Phone: [facility] Comment on above: (wants coding change d) Procedures Date Procedure Procedure Detail Performing Clinician Start: 06-05-2025 Vitamin D, 25-hydrox y measurement Dr. Harmeet Reynolds MD Work Phone: Comment on above: Vitamin D StatusDefi ciency: <20 ng/mL (50nmol/L)Insufficiency: 20-30 ng/mL (50-75 nmol/L)Sufficiency: 30-100 ng/mL (75-250 nmol/L)Toxicity: >100 ng/mL (>250 nmol/L) Start: 07-22-2013 Mammography Jordyn brooks Work Phone: Start: 03-26-2009 Colonoscopy Jordyn brooks Work Phone: Plan of Treatment Date Care Activity Detail Author Start: 07-27-2021 Influenza vaccination INFLUENZA (Sea son Ended) [facility] Start: 03-30-2019 Urine microalbumin profile DTAP,TDAP ,TD (2 - Td) [facility] Start: 03-26-2019 Screening for malign ant neoplasm of colon [facility] Start: 07-22-2018 LIPID SCREEN LIPID SCREEN [facility] Start: 07-22-2016 DIABETES SCREEN DIABETES SCREEN [facility] Start: 07-22-2014 Mammography MAMMOGRAM [facility] Start: 2008 Screening for malign ant neoplasm of colon [facility] Start: 2008 SHINGRIX VACCINE (1 of 2) URBINA GRIX VACCINE (1 of 2) [facility] Start: 1976 HEPATITIS C SCREENING HEPATITIS C SC REENING [facility] Start: 1976 HIV SCREENING HIV SCREENING [facility] Start: 1970 Adult depression [facility] assessment DEPRESSION SCREENING [facility] Immunizations Immunization Date Immunization Notes Care Provider Rowan edwards 09-09-2013 influenza virus vacc ine, unspecified formulation Jordyn De Los Santos Work Phone: [facility] 03-30-2009 tetanus toxoid, redu fabiana diphtheria toxoid, and acellular pertussis vaccine, adsorbed Jordyn De Los Santos Work Phone: [facility] Payers Date Payer Category Payer Medicare [id number] 2024 Self-pay [id number] 2024 Private Health Insurance [facility] [id number] 2011 Private Health Insurance [facility] CHOICE PLUS [id number] 2011-2016 POS [id number] Medicare MEDICARE PART A B [id number] Medicare [id number] Private Health Insurance [id number] Private Health Insurance [id number] Unknown [id number] Unknown [id number] Unknown [id number] Unknown [id number] Social History Date Type Detail Facility Start: 07-22-2013 End: 10-16-2018 Tobacco smoking status NHIS Never smoker [facility] Start: 07-22-2013 Tobacco use and exposure Never used [facility] Start: 07-22-2013 Alcohol intake Current drinke r of alcohol (finding) [facility] Start: 1960 Sex Assigned At Not on file [facility] Start: 10-16-2018 Tobacco smoking stat us KSIS Unknown if ever smoked [facility] Start: 1960 Sex Assigned At Female [facility] Note 06-09-2014 Telephone Encounter - Cira Javier Rn - 06/09/2014 10:37 AM EDTTelephone Encounter - Matilda Sanchez Lpn - 10/29/2013 3:19 PM ESTTelephone Encounter - Matilda Sanchez Lpn - 10/29/2013 2:53 PM EST Note Date & Type Note Facility 06-09-2014 Miscellaneous Notes Gabriela, could this encounter be closed? I would assume after this much time it has been addressed. please close it if appropriate. Matilda, The labs were ordered under the preventative DX V70.0. I do not see them on her account so I am assuming that this went through the reference lab ( they have a different billing system). I will send this on to [facility] to see if we can see how things were billed out and see what we can do to fix. I will let you know what I find out! Thanks!! IHSAN Otoole sent message to coders. Who can help with this? patient calling to say that the lab work she had done on 07/22/13 needs to have the code changed to preventative medicine and then have the bill re-submitted for her insurance to pay her lab bill, documented in this encounter [facility] Evaluation note Note Date & Type Note Facility Evaluation note No assessment information availa ble [facility] Work Phone: Reason for referral (narrative) Note Date & Type Note Facility Reason for referral (narrative) No reason for referral information available [facility] Work Phone: Advance Directives No Advanced Directives Records FoundDocuments on File Type Date Recorded 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 Advance Directive(s) 04/23/2009 10:33 PM Advance Directive Response Recorded Date/ Time Living Will No October 16, 018 11:14pm 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 No October 16, 2018 11:14pm Chief Complaint and Reason for Visit Chief Complaint LABWORK Chief Complaint PYOGENIC GROWLONA Summary Purpose Family History No Family History Records Found Additional Source Comments Source Comments (unrecognize d section and content) In the event this informatio n is protected by the Federal Confidentiality of Alcohol and Drug Abuse Patient Records regulations: The Federal rules restrict any use of the information to criminally investigate or prosecute any alcohol or drug abuse patient.[facility] Reason for Visit (unrecogniz ed section and content) Reason Onset Date Comments lab billing complaint 10/28/2013 kennys naveen alston changed Goals (unrecognized section and content) Goals may be documented in a n alternate sectionGoals may be documented in an alternate sectionGoals may be documented in an alternate sectionGoals may be documented in an alternate section Care Teams (unrecognized sec tion and content) Team Status: Active Member Role Status Dates No Primary Care Physician Family Provider Active Dr. Harmeet Reynolds MD Primary Care Provider Active Team Status: Inactive Member Role Status Dates Dr. Harmeet Reynolds MD Primary Care Provider, Attending Provider Active Team Status: Active Member Role/Relationship Status Dates No Primary Care Physician Family Provider Active Dr. Harmeet Reynolds MD Primary Care Provider Active Team Status: Inactive Member Role/Relationship Status Dates Dr. Harmeet Reynolds MD Primary Care Provider Active Start: June 05, 2025 End: June 05, 2025 Dr. Harmete Reynolds MD Attending Provider Active Start: June 05, 2025 End: June 05, 2025 INFORMATION SOURCE (unrecogn ized section and content) DATE CREATED AUTHOR 06/15/2025 [facility] FOR RECORDS PERTAINING TO PATIENTS WHO ARE OR HAVE BEEN ENROLLED IN A CHEMICAL DEPENDENCY/SUBSTANCEABUSE PROGRAM, SOME INFORMATION MAY BE OMITTED. This clinical summary was aggregated from multiple sources. Caution should be exercised in using it in the provision of clinical care. This summary normalizes information from multiple sources, and as a consequence, information in this document may materially change the coding, format and clinical context of patient data. In addition, data may be omitted in some cases. CLINICAL DECISIONS SHOULD BE BASED ON THE PRIMARY CLINICAL RECORDS. [facility] [employer] [facility]. provides no warranty or guarantee of the accuracy or completeness of information in this document.
[2025-09-11 10:00] LABS: Hematocrit 44.1 % (37-47); Hemoglobin 14.5 g/dL (12.0-15.0); Immature Granulocytes Count 0.010 X10^3/uL (0.0-0.0); Mean Corp Hgb Conc 32.9 g/dL (32-36); Mean Corpuscular Volume 93.6 fL (81-99); Mean Platelet Vol. 11.3 fl (6.2-12.0); NRBC Flagged by Analyzer 0 % (0-5); Platelet Count 279 K/mm3 (150-450); RBC Distribution Width CV 13.0 % (11.6-14.6); RBC Distribution Width SD 44.8 fl (35.1-43.9); Red Blood Count 4.71 M/mm3 (4.2-5.4); White Blood Count 5.7 K/mm3 (4.4-11.0)
[2025-09-11 10:40] LABS: AST(SGOT) 18 U/L (<=31); Alanine Aminotransfer ALT/SGPT 14 U/L (<=34); Albumin, Serum 4.3 g/dL (3.4-4.8); Alkaline Phosphatase 66 U/L (35-104); Anion Gap 9 (5-15); BUN 13 mg/dL (4-19); BUN/Creat Ratio 13.9 RATIO (10-20); Calcium,Total 9.5 mg/dL (7.6-11.0); Carbon Dioxide 28.1 mmol/L (21.0-32.0); Chloride 101 mmol/L (98-108); Cholesterol 126 mg/dL (<=200); Globulin 3.0 g/dL (2.2-4.2); Glucose 103 mg/dL (70-99); Low Density Lipoprotein Calc. 62 mg/dL; Potassium 4.7 mmol/L (3.3-5.1); Triglycerides 81 mg/dL; Very Low Density Lipoprotein 16 mg/dL (5-40); Vitamin D,25 Hydroxy 51.3 ng/mL (30-100); cholesterol:hdl ratio screen 2.64
[2025-09-11 17:38] LABS: Xtra Tube Kwok EXTRA TUBE
== END | disposition home or self-care (01) ==
LOC: POLAB3 09:34
PROVIDERS: PCP Family Medicine Geriatric Medicine; Visit Provider Family Medicine Geriatric Medicine
DX: E78.5 Hyperlipidemia, unspecified (principal); E11.65 Type 2 diabetes mellitus with hyperglycemia; R53.83 Other fatigue; E03.9 Hypothyroidism, unspecified; E55.9 Vitamin D deficiency, unspecified
CPT/HCPCS: 36415; 80053; 80061; 82306; 83036; 84443; 85025